=== PATIENT | male | born 1950 | race Caucasian/White ===

== ENCOUNTER 2018-02-24 11:25 | Outpatient (CLI) | payer OTHER, SELFPAY ==
--- NOTE | 2018-02-24 12:41 | DI.RAD_ITS ---
SYMPTOMS/DIAGNOSIS: LUMBAR SPONDYLOSIS PAIN CLINIC LUMBAR SPINE: Fluoroscopy Time: 26.1 sec Fluoroscopy was utilized by Dr. Alfaro during the performance of a bilateral lumbar medial branch block. Please refer to the procedure report for complete details.
[2018-02-24 13:12] VITALS: BP 131/83; PULSE 60; RESP 14; O2SAT 97
--- NOTE | 2018-02-24 13:21 | PDOC.PAIN_ITS ---
Pain Clinic Procedure Note Current Active Problems Problem Status Onset Lumbosacral spondylosis without myelopathy Chronic Lumbar/Sacral Medial Branch Blocks ERIN NAVAS has been referred to the [facility] for lumbar/ sacral medial branch blocks. COMMENTS: Patient patient is a past radiofrequency ablation L3-4 08/2015. This lasted for over a year. His pain increased but is in the same distribution. He does have right-sided radicular symptoms to his Ankle. He has had previous epidural steroid injections in the past which only gave him minimal relief. Patient was interviewed and the medical record reviewed. There were no medical , pharmacologic, radiographic or other structural contraindications to attempting fluoroscopically guided local anesthetic lumbar/sacral medial branch blocks. Risks and expected side effects as well as potential benefit of the procedure were reviewed and voiced concerns addressed. The printed consent form was signed and witnessed. Standard time-out procedure was performed. Patient was placed in the prone position on the fluoroscopy table and automated blood pressure cuff and pulse oximeter applied. The skin entry points for approaching the anatomic target points of the segmental medial branches of { bilateral L3, 4, 5} were identified with anfluoroscopy and marked. Following thorough Chlorhexadine preparation of the skin and draping and 1% lidocaine infiltration of the skin entry points and subcutaneous tissues, a 22 gauge spinal needle was placed under fluoroscopic guidance down on to the target point for each respective segmental medial branch.Position was confirmed in A/P, oblique and lateral views with 0.25ml of omnipaque 240. At each point .5ml 0.5% Bupivacaine was injected. Vital signs were stable throughout the procedure and were as recorded in the docflowsheet by the nursing staff. Follow up plans and appointments were discussed and was instructed to keep careful note of how the usual pain was modified by these injections. Specifically was asked to keep a pain diary for the next 24 hours using a numeric pain scale of 0-10 and report these results at the follow-up visit. Post procedure instruction was given as documented in the nursing documentation and having met discharge criteria. Patient was discharged from the [facility]. Based on the medial branches blocked today, if the patient has adequate relief and we are able to proceed to radiofrequency ablation, the treatment should result in the denervation of the {bilateral L4-5, L5-S1 FACET JOINTS}. We would expect to denervate a total of {4} facets during the radiofrequency ablation. COMMENTS: Pain went from 10/21-. He will follow-up for radiofrequency ablation of the meets criteria. If he does not then would obtain an updated MRI. CC: Jyoti Orozco
[2018-02-24] MEDS: Omnipaque 240 MG/ML 50 ML BTL IJ (13:22)
[2018-02-24] MEDS: Bupivacaine 0.5% Pres-Free 10 ML VIAL IJ (13:24)
== END 2018-02-24 11:45 ==
PROVIDERS: PCP Family Medicine; Visit Provider Anesthesiology Pain Medicine
DX: R31.21 Asymptomatic microscopic hematuria (principal); N28.1 Cyst of kidney, acquired; Q63.0 Accessory kidney; K80.20 Calculus of gallbladder without cholecystitis without obstruction; M51.16 Intervertebral disc disorders with radiculopathy, lumbar region; M47.816 Spondylosis without myelopathy or radiculopathy, lumbar region; G89.29 Other chronic pain
CPT/HCPCS: 64493; 64494; 64495; 72100; Q9967

== ENCOUNTER 2018-04-01 07:45 | Outpatient (CLI) | payer OTHER, SELFPAY ==
--- NOTE | 2018-04-01 06:00 | DI.RAD_ITS ---
SYMPTOMS/DIAGNOSIS: LUMBAR SPONDYLOSIS, LUMBAR RADIOFREQUENCY ABLATION PAIN CLINIC: Fluoroscopy Time: 84.6 secs Images submitted from the pain clinic demonstrate needle placement over the left lateral superior portion of the L 4 vertebral body and left L 4 - 5 disc interspace in conjunction with a radiofrequency ablation carried out by Dr. Bonner. Please see the procedure report for further information.
[2018-04-01 08:00] VITALS: BP 113/81; PULSE 65; RESP 18; TEMP 37.3; O2SAT 96
[2018-04-01] MEDS: Midazolam 2 MG/2 ML VIAL IVP (08:22)
[2018-04-01] MEDS: fentaNYL 100 MCG/2 ML VIAL IVP (08:22)
[2018-04-01] MEDS: Lactated Ringers 1,000 ML 80 ML IV (08:26)
[2018-04-01 08:59] VITALS: BP 126/86; PULSE 68; RESP 21; O2SAT 96
--- NOTE | 2018-04-01 09:08 | PDOC.PAIN_ITS ---
Pain Clinic Procedure Note Current Active Problems Problem Status Onset Lumbosacral spondylosis without myelopathy Chronic LUMBAR/SACRAL MEDIAL BRANCH RADIOFREQUENCY with the COOLIEF Machine ERIN NAVAS has been referred to the [facility] for radiofrequency treatment of chronic axial back pain. ERIN has had long standing back pain thought to be facet joint generated and which has been refractory to other therapies. Local anesthetic medial branch blocks or intra- articular facet joint injections resulted in ERIN reporting reduction of the usual axial component of pain for at least the duration of the local anesthetic effect. COMMENTS: He nearly 2 years of relief with his last bilateral L3-L5DR RFA >2 years ago. DX: Lumbosacral spondylosis without myelopathy Patient was interviewed and the medical record reviewed. There were no medical, pharmacologic, radiographic or other structural contraindications to attempting fluoroscopically guided radiofrequency treatment. Risks and expected side effects as well as potential benefit of the procedure were reviewed and voiced concerns addressed. The printed consent form was signed and witnessed. Standard time-out procedure was performed. Patient was placed in the prone position on the fluoroscopy table and automated blood pressure cuff and pulse oximeter applied. The skin entry points for approaching the anatomic target points of the segmental medial branches of bilateral L3-L5DR were identified with fluoroscopy and marked. Following thorough Chlorhexadine preparation of the skin and draping and 1% lidocaine infiltration of the skin entry points and subcutaneous tissues, a single 18 guage curved 10 cm 10mm active tip radiofrequency cannula was placed under fluoroscopic guidance along or across the anatomic course of each respective segmental medial branch. Each placement was stimulated at 50Hz and les then 0.5V for medial branch sensory localization without any evidence of distal myotomal stimulation. 1cc of 2% ;idocaine was injected at each site. At each placement a continuous mode radiofrequency treatment was done at 80 degrees C for 90secs and then rotated 180degrees and then repeated. 1/3 cc of Depomedrol 40 mg/cc was injected at each segment. This radiofrequency treatment should result in the denervation of the bilateral L4-L5 and L5-S1 FACET JOINTS.~ A total of 4 facets were expected to be denervated from today's treatment. Vital signs were stable throughout the procedure and were as recorded in the docflowsheet by the nursing staff. If given, dosages of intravenous drugs for anxiolysis and analgesia were documented in the Medication Administration Record (MAR). Follow up plans and appointments were discussed. Post procedure instruction was given as documented in the nursing documentation and having met discharge criteria, ERIN was discharged from the [facility]. COMMENTS: If this gives him >6 months of relief from his low back pain, it can be repeated. CC: Jyoti Orozco
[2018-04-01] MEDS: methylPREDNISolone ACETATE 40 MG/ML VIAL IJ (09:26)
[2018-04-01] MEDS: Bupivacaine 0.5% Pres-Free 30 ML VIAL IJ (09:26)
[2018-04-01] MEDS: Lidocaine 2% Pres-Free 5 ML VIAL IJ (09:27)
== END 2018-04-01 08:05 ==
PROVIDERS: PCP Family Medicine; Visit Provider Preventive Medicine Occupational Medicine
DX: M47.817 Spondylosis without myelopathy or radiculopathy, lumbosacral region (principal); G89.29 Other chronic pain
CPT/HCPCS: 64635; 64636; 72100; J1030; J2250; J3010

== ENCOUNTER 2020-03-07 08:19 | Outpatient (CLI) | payer MEDICARE, OTHER, MEDICAID, SELFPAY ==
--- NOTE | 2020-03-07 06:00 | DI.RAD_ITS ---
EXAM: XR PAIN CLINIC LUMBAR SP 2V CLINICAL HISTORY: Dx:Lumbar Spondylosis. TECHNIQUE: Fluoroscopy was provided for the referring physician for guidance with performing injecti on procedure. COMPARISON: No exams were available for comparison FINDINGS: Please see procedure note for details. Fluoro time: 73.9 sec, 27.53 mGy RADIATION DOSE DELIVERED:
[2020-03-07 08:28] VITALS: BP 132/82; PULSE 60; RESP 16; TEMP 36.8; O2SAT 97
[2020-03-07] MEDS: Lactated Ringers 1,000 ML 80 ML IV (09:00)
[2020-03-07] MEDS: fentaNYL 100 MCG/2 ML VIAL IVP (09:06)
[2020-03-07] MEDS: Midazolam 2 MG/2 ML VIAL IVP (09:06)
[2020-03-07] MEDS: Lidocaine 1% Pres-Free 30 ML VIAL IJ (09:24)
[2020-03-07] MEDS: methylPREDNISolone ACETATE 40 MG/ML VIAL IJ (09:34)
[2020-03-07] MEDS: Lidocaine 2% Pres-Free 5 ML VIAL IJ (09:35)
[2020-03-07] MEDS: Bupivacaine 0.5% Pres-Free 10 ML VIAL IJ (09:36)
[2020-03-07 09:39] VITALS: BP 135/93; PULSE 66; RESP 14; O2SAT 96
--- NOTE | 2020-03-07 09:47 | PDOC.PAIN_ITS ---
Pain Clinic Procedure Note Procedure Note Procedure Note: Bilateral Lumbar Radiofrequency with Coolief Machine PROCEDURE NOTE Date of Service: March 07, 2020 Patient: DANIELA NAVASAND Uriel Provider: Escobar Frederick MD Pre Operative Diagnosis: lumbar spondylosis Post Operative Diagnosis: same as above Comment: patient presents for repeat lumbar RFA, typically gets 9 months of excellent pain relief of back pain. PROCEDURE: Radiofrequency Ablation of medial branches - bilateral L3, L4, L5-DR ERIN NAVAS was brought into the fluoroscopy suite and positioned into the prone position on the fluoroscopy table and allowed to adjust to a position of comfort. A grounding pad was placed on the left thigh. The lumbar region was widely prepped with a chloraprep solution, allowed to air dry and draped in standard sterile surgical fashion. Local anesthesia was provided by 20 mL of 1 % lidocaine delivered with a 25g needle. A 17g 100mm radiofrequency introducer needle was placed to the planned anatomic targets guided with intermittent fluoroscopy with a perpendicular approach to terminally place at the junction of the superior articular process and the transverse process of the bilateral L3 L4 and the base of the sacral ala on the bilateral for the L5 medial branch nerve. The stylets were removed and radiofrequency probes with a 4mm active tip were then inserted. Needle tip position of the probes was verified in the AP, oblique, and lateral views. At each site, the medial branch nerve was stimulated at 2 Hz to a maximum 1-2 volts determined to finalize safe needle and electrode placement. The patient was awake and responsive during this portion of the procedure. Each target was an esthetized with 1mL of 2% lidocaine for anesthesia for lesioning and then each target was lesioned at 80 degrees Celsius for 2 minutes and 30 seconds. Tissue impedences were noted to be between 250 and 500 Ohms. Electrodes and needles were then removed and bandages placed over the needle placement sites, the patient then returned to the supine position on a stretcher and transported to the recovery room without hemodynamic, neurologic, or allergic reactions. Fluoroscopic images were printed for hard copy recording and digitally archived. POST PROCEDURE EVALUATION: IMPRESSION: 1. Patient required 1mg of IV versed and 25mcg of IV Fentanly Follow up plans and appointments were discussed with the ERIN . Post procedure instruction was given as documented in nursing documentation and having met discharge criteria, ERIN was discharged from the [facility]. COMMENTS: No complications. F/U with our office as needed. I personally performed this entire procedure. Escobar Frederick MD Attending Physician
== END 2020-03-07 08:39 ==
PROVIDERS: PCP Family Medicine; Visit Provider Internal Medicine
DX: M47.816 Spondylosis without myelopathy or radiculopathy, lumbar region (principal)
CPT/HCPCS: 64635; 64636; 72100; J1030; J2250; J3010

== ENCOUNTER 2020-03-27 21:32 | Outpatient (REF) | payer MEDICARE, OTHER, SELFPAY ==
[2020-03-27 18:56] LABS: ALT 29 U/L (16-63); AST 19 U/L (15-37); Albumin 4.1 g/dL (3.4-5.0); Alkaline Phosphatase 57 U/L (46-116); Anion Gap 5.1 mmol/L (3-11); BUN 19 mg/dL (7-18); Bilirubin, Total 0.4 mg/dL (0.2-1.0); CO2 29.9 mmol/L (21.0-32.0); CREATININE 1.02 mg/dL (0.70-1.30); Calcium 9.2 mg/dL (8.5-10.1); Chloride 101 mmol/L (98-107); Glucose 75 mg/dL (74-106); Potassium 4.5 mmol/L (3.5-5.1); Sodium 136 mmol/L (136-145); Total Protein 7.1 g/dL (6.4-8.2)
== END 2020-03-27 21:52 ==
LOC: NCHCN 21:32
PROVIDERS: PCP Family Medicine; Visit Provider Family Medicine
DX: I10 Essential (primary) hypertension (principal)
CPT/HCPCS: 80053

== ENCOUNTER 2020-05-17 15:25 | Outpatient (REF) | payer MEDICARE, OTHER, SELFPAY ==
[2020-05-21 17:29] LABS: 2-Hydroxy Ethyl Flurazepam Not Detected ng/mL (Cutoff: 10); 6-monoacetylmorphine Not Detected ng/mL (Cutoff: 25); Alpha-Hydroxy Midazolam Not Detected ng/mL (Cutoff: 10); Alpha-Hydroxy Triazolam Not Detected ng/mL (Cutoff: 10); Alpha-Hydroxyalprazolam Not Detected ng/mL (Cutoff: 10); Alpha-OH-alprazolam Glucuronid Not Detected ng/mL (Cutoff: 50); Alprazolam Not Detected ng/mL (Cutoff: 10); Amphetamines Negative ng/mL (Cutoff: 500); Barbiturates Negative ng/mL (Cutoff: 200); Buprenorphine Not Detected ng/mL (Cutoff: 5); Chlordiazepoxide Not Detected ng/mL (Cutoff: 10); Clobazam Not Detected ng/mL (Cutoff: 10); Clonazepam Not Detected ng/mL (Cutoff: 10); Cocaine Negative ng/mL (Cutoff: 150); Codeine Not Detected ng/mL (Cutoff: 25); Comment Normal; Creatinine, U 75.8 mg/dL; Diazepam Not Detected ng/mL (Cutoff: 10); Dihydrocodeine Not Detected ng/mL (Cutoff: 25); EDDP Not Detected ng/mL (Cutoff: 25); Fentanyl Not Detected ng/mL (Cutoff: 2); Flurazepam Not Detected ng/mL (Cutoff: 10); Hydrocodone Not Detected ng/mL (Cutoff: 25); Hydromorphone Not Detected ng/mL (Cutoff: 25); Hydromorphone-3-beta-glucuroni Not Detected ng/mL (Cutoff: 100); Lorazepam Not Detected ng/mL (Cutoff: 10); Lorazepam Glucuronide Not Detected ng/mL (Cutoff: 50); Meperidine Not Detected ng/mL (Cutoff: 25); Methadone Not Detected ng/mL (Cutoff: 25); Midazolam Not Detected ng/mL (Cutoff: 10); Morphine Not Detected ng/mL (Cutoff: 25); N-Desmethylclobazam Not Detected ng/mL (Cutoff: 200); N-desmethyltapentadol Not Detected ng/mL (Cutoff: 50); Naloxone Not Detected ng/mL (Cutoff: 25); Norbuprenorphine Not Detected ng/mL (Cutoff: 5); Norfentanyl Not Detected ng/mL (Cutoff: 2); Norhydrocodone Not Detected ng/mL (Cutoff: 25); Normeperidine Not Detected ng/mL (Cutoff: 25); Noroxycodone Not Detected ng/mL (Cutoff: 25); Noroxymorphone Not Detected ng/mL (Cutoff: 25); O-desmethyltramadol Not Detected ng/mL (Cutoff: 25); Oxazepam Glucuronide Not Detected ng/mL (Cutoff: 50); Phencyclidine Negative ng/mL (Cutoff: 25); Prazepam Not Detected ng/mL (Cutoff: 10); Propoxyphene Not Detected ng/mL (Cutoff: 25); Specific Gravity 1.009; Tapentadol Not Detected ng/mL (Cutoff: 25); Temazepam Not Detected ng/mL (Cutoff: 10); Temazepam Glucuronide Not Detected ng/mL (Cutoff: 50); Tetrahydrocannabinol Presumptive Positive ng/mL (Cutoff: 50); Tramadol Not Detected ng/mL (Cutoff: 25); Triazolam Not Detected ng/mL (Cutoff: 10); Zolpidem Phenyl-4-Carboxy acid Not Detected ng/mL (Cutoff: 10); pH 7.3
[2020-05-23 21:13] LABS: Carboxy-THC Interpretation Positive.; Delta-9 CarboxyThc by LC-MS/MS 419 ng/mL (Cutoff:<3)
== END 2020-05-17 15:26 | disposition home or self-care (01) ==
LOC: LBN 15:25
PROVIDERS: PCP Family Medicine; Visit Provider Nurse Practitioner Family
DX: Z79.899 Other long term (current) drug therapy (principal)
CPT/HCPCS: 80307; 80347; 80349; 80364

== ENCOUNTER 2021-08-27 14:42 | Outpatient (REF) | payer MEDICARE, OTHER, SELFPAY ==
[2021-08-27 15:43] LABS: Abs Immature Grans 0.01 10^3/uL (0.0-0.06); Absolute Basophil Count 0.06 10^3/uL (0.0-0.2); Absolute Eosinophil Count 0.32 10^3/uL (0.0-0.7); Absolute Lymphocyte Count 1.37 10^3/uL (1.2-3.4); Absolute Monocyte Count 1.06 10^3/uL (0.1-0.8); Absolute Neutrophil Count 3.34 10^3/uL (1.2-6.7); Eosinophils % 5.2; HCT 43.7 % (40.0-50.0); HGB 14.5 g/dL (13.5-17.5); Immature Grans % 0.2; Lymphocytes % 22.2; MCH 31.7 pg (27.0-33.0); MCHC 33.2 % (32.0-36.0); MCV 96 fL (80-95); MPV 9.7 fL (8.0-11.0); Monocytes % 17.2; Neutrophils % 54.2; Platelet Count 289 10^3/uL (130-400); RBC 4.57 10^6/uL (4.36-5.78); RDW 12.6 % (11.8-14.1); RDW-SD 44.8 fL; WBC 6.16 10^3/uL (4.4-10.8)
[2021-08-27 15:53] LABS: PTT Activated 23.4 sec (21.0-27.5); Prothrombin Time 9.7 sec (9.3-11.0)
== END 2021-08-27 14:43 | disposition home or self-care (01) ==
LOC: LBN 14:42
PROVIDERS: PCP Family Medicine; Visit Provider Family Medicine
DX: R23.3 Spontaneous ecchymoses
CPT/HCPCS: 85025; 85610; 85730

== ENCOUNTER 2021-09-24 08:44 | Outpatient (CLI) | payer MEDICARE, OTHER, SELFPAY ==
--- NOTE | 2021-09-24 08:30 | DI.RAD_ITS ---
Exam(s) XR SHOULDER RT COMPLETE 2+V EXAM: XR SHOULDER RT COMPLETE 2+V CLINICAL HISTORY: pain in right shoulder. TECHNIQUE: 2D digital imaging was performed. Two views. COMPARISON: CR RIGHT SHOULDER COMPLETE from 01/17/2016 MR MRI R UPPER JOINT WO CONT from 02/12/2016 FINDINGS: BONES: No acute fracture is present. No bony destructive lesion is seen. There is spurring at the ti p of the acromion as well as at the greater tuberosity. There is mild spurring at the glenoid. The JOINTS: No dislocation present. Glenohumeral joint space is well maintained. No significant AC join t spurring. SOFT TISSUE: Normal. IMPRESSION: Mild degenerative changes. DATA REPOSITORY: RADIATION DOSE DELIVERED:
== END 2021-09-24 08:45 | disposition home or self-care (01) ==
LOC: DIORS 08:45
PROVIDERS: PCP Family Medicine; Visit Provider Family Medicine
DX: M65.331 Trigger finger, right middle finger (principal); M75.21 Bicipital tendinitis, right shoulder; M75.41 Impingement syndrome of right shoulder; M75.51 Bursitis of right shoulder; M75.101 Unspecified rotator cuff tear or rupture of right shoulder, not specified as traumatic
CPT/HCPCS: 20550; 99203; 73030; J1030

== ENCOUNTER → 2021-10-17 01:33 | Outpatient (CLI) | payer MEDICARE, OTHER, SELFPAY ==
--- NOTE | 2021-10-17 08:15 | DI.MRI_ITS ---
Exam(s) MR UPPER JOINT RT WO EXAM: MR UPPER JOINT RT WO CLINICAL HISTORY: PAIN,bursitis rt shoulder, impingement syndrome,tendinitis,m75.51,m75.41,. TECHNIQUE: Multiplanar multisequence MRI was performed. COMPARISON: Plain films 24 September 2021 and MRI 12 February 2016. FINDINGS: The exam is limited by patient motion Bones: There is no fracture or contusion pattern. The acromioclavicular joint is normal. There is spurring at the tip of the acromion. Degenerative changes are noted in the glenoid and humeral head.. Glenohumeral joint: A moderate sized glenohumeral joint effusion is present. Fluid is also seen in th e subcoracoid and subacromial subdeltoid bursae. Rotator Cuff: The supraspinatus tendon is torn and retracted to the level of the acromion. There is moderate muscl e atrophy.. The subscapularis tendon is torn and retracted to the level of the glenoid. There is mo derate to severe muscle atrophy. The infraspinatus and teres minor tendons appear intact. Labrum and biceps anchor: The biceps tendon is not seen.. . The labrum shows degenerative changes greatest anteriorly and supe riorly.. IMPRESSION: Full-thickness tear with retraction of the supraspinatus and subscapularis tendons as well as biceps tendon. Degenerative changes of the glenohumeral joint. Joint effusion. DATA REPOSITORY:
== END ==
PROVIDERS: PCP Family Medicine; Visit Provider Student in an Organized Health Care Education/Training Program
DX: M75.101 Unspecified rotator cuff tear or rupture of right shoulder, not specified as traumatic (principal); M75.21 Bicipital tendinitis, right shoulder; M75.41 Impingement syndrome of right shoulder; M75.51 Bursitis of right shoulder
CPT/HCPCS: 73221

== ENCOUNTER → 2021-10-23 10:45 | Outpatient (BNVA) | payer MEDICARE, OTHER, SELFPAY | PROVIDERS: PCP Family Medicine; Referring Provider Family Medicine; Visit Provider Student in an Organized Health Care Education/Training Program | DX: M12.811 Other specific arthropathies, not elsewhere classified, right shoulder (principal); M75.101 Unspecified rotator cuff tear or rupture of right shoulder, not specified as traumatic | CPT/HCPCS: 20610; 99214; J1030 ==

== ENCOUNTER 2022-02-18 18:08 | Outpatient (REF) | payer MEDICARE, OTHER, SELFPAY ==
[2022-02-18 18:34] LABS: Anion Gap 8.1 mmol/L (3-11); BUN 17 mg/dL (7-18); CO2 29.9 mmol/L (21.0-32.0); CREATININE 0.8 mg/dL (0.70-1.30); Calcium 9.6 mg/dL (8.5-10.1); Calculated LDL 218 mg/dL (<100); Chloride 102 mmol/L (98-107); Cholesterol 279 mg/dL (<200); Glucose 99 mg/dL (74-106); HDL Cholesterol 49 mg/dL (40-60); Potassium 4.3 mmol/L (3.5-5.1); Sodium 140 mmol/L (136-145); Triglyceride 64 mg/dL (<150)
[2022-02-20 09:14] LABS: Hepatitis B Surface Ag Negative (Negative)
[2022-02-20 10:48] LABS: HIV-1/2 Ag & Ab Screen Negative (Negative)
[2022-02-20 11:07] LABS: Hepatitis C Ab w Rflx HCV PCR Negative (Negative)
== END 2022-02-18 18:09 | disposition home or self-care (01) ==
LOC: NCHCN 18:08
PROVIDERS: PCP Family Medicine; Visit Provider Family Medicine
DX: Z00.00 Encounter for general adult medical examination without abnormal findings (principal); E78.5 Hyperlipidemia, unspecified; I10 Essential (primary) hypertension
CPT/HCPCS: 80048; 80061; 86803; 87340; 87389

== ENCOUNTER → 2022-02-25 01:44 | Outpatient (CLI) | payer MEDICARE, OTHER, SELFPAY ==
--- NOTE | 2022-02-25 07:00 | DI.US_ITS ---
Exam(s) US AAA SCREENING EXAM: US AAA SCREENING CLINICAL HISTORY: ADULT PREVENTATIVE CARE, Z00.00; REMOTE SMOKING HISTORY COMPARISON: No exams were available for comparison FINDINGS: Abdominal Aorta: Proximal: 2.9 cm Mid: 2.5 cm Distal: 2.2 cm Iliacs: Right: 1.3 cm Left: 1.5 cm IMPRESSION: No evidence of abdominal aortic aneurysm. DATA REPOSITORY:
== END ==
PROVIDERS: PCP Family Medicine; Visit Provider Family Medicine
DX: Z00.00 Encounter for general adult medical examination without abnormal findings (principal)
CPT/HCPCS: 76706

== ENCOUNTER → 2022-03-12 10:39 | Outpatient (BNVA) | payer MEDICARE, OTHER, SELFPAY | PROVIDERS: PCP Family Medicine; Referring Provider Family Medicine; Visit Provider Student in an Organized Health Care Education/Training Program | DX: M65.331 Trigger finger, right middle finger (principal) | CPT/HCPCS: 20550; 99213; J1030 ==

== ENCOUNTER → 2022-03-26 11:20 | Outpatient (BNVA) | payer MEDICARE, OTHER, SELFPAY | PROVIDERS: PCP Family Medicine; Referring Provider Family Medicine; Visit Provider Student in an Organized Health Care Education/Training Program | DX: M12.811 Other specific arthropathies, not elsewhere classified, right shoulder (principal); S46.211A Strain of muscle, fascia and tendon of other parts of biceps, right arm, initial encounter; X58.XXXA Exposure to other specified factors, initial encounter | CPT/HCPCS: 20610; 99213; J1030 ==

== ENCOUNTER → 2022-06-25 10:28 | Outpatient (BNVA) | payer MEDICARE, OTHER, SELFPAY | PROVIDERS: PCP Family Medicine; Referring Provider Family Medicine; Visit Provider Student in an Organized Health Care Education/Training Program | DX: M65.331 Trigger finger, right middle finger (principal) | CPT/HCPCS: 99214 ==

== ENCOUNTER 2022-07-10 01:24 | Outpatient (CLI) | payer MEDICARE, OTHER, SELFPAY ==
--- NOTE | 2022-07-10 07:30 | DI.CT_ITS ---
Exam(s) CT UPPER EXTREMITY RT WO EXAM: CT UPPER EXTREMITY RT WO CLINICAL HISTORY: PAIN,rupture rt proximal biceps tendon, [id number]. TECHNIQUE: Imaging Protocol: Axial computed tomography images with coronal and sagittal reformatted images were created and reviewed. COMPARISON: CR XR SHOULDER RT COMPLETE 2+V from 09/24/2021 MR MR UPPER JOINT RT WO from 10/17/2021 FINDINGS: Bones: No acute fractures identified. There is narrowing of the acromial humeral interval. Superio r subluxation of the humeral head is seen. This can be seen with chronic rotator cuff tear. There a re mild degenerative changes seen at the acromioclavicular joint with mild bony hypertrophy. There a re degenerative changes seen at the glenohumeral joint. Small subchondral cysts are seen in the grea ter tuberosity. No lytic or sclerotic lesions are identified. Soft Tissues: Atherosclerosis of the thoracic aorta is noted. Coronary artery calcifications are pre sent. IMPRESSION: 1. Degenerative changes in the shoulder as described above. 2. Superior subluxation of the humeral head which can be seen with chronic rotator cuff tear. 3. If there is concern for rotator cuff injury for biceps tendon tear, an MRI should be considered fo r further evaluation. RADIATION DOSE DELIVERED: 742.35mGy.cm Total DLP 742.35mGy.cm Total DLP DATA REPOSITORY: All CT scans at this facility are submitted to the National Radiology Data Registry (NRDR) Dose Index Registry (DIR) with the [employer] ([employer]). RADIATION OPTIMIZATION: All CT scans at this facility use at least one of these dose optimization te chniques: automated exposure control; mA and/or kV adjustment per patient size (includes targeted exa ms where dose is matched to clinical indication); or iterative reconstruction.
== END 2022-07-10 01:44 ==
LOC: DI 01:24
PROVIDERS: PCP Family Medicine; Visit Provider Student in an Organized Health Care Education/Training Program
DX: M25.511 Pain in right shoulder (principal); S46.211A Strain of muscle, fascia and tendon of other parts of biceps, right arm, initial encounter; M79.621 Pain in right upper arm; M19.011 Primary osteoarthritis, right shoulder; S43.081A Other subluxation of right shoulder joint, initial encounter
CPT/HCPCS: 73200

== ENCOUNTER 2022-08-02 09:50 | Day surgery (SDC) | payer MEDICARE, OTHER, SELFPAY ==
[2022-08-02 10:12] VITALS: BP 150/81; PULSE 61; RESP 16; TEMP 36.3; O2SAT 97
[2022-08-02] MEDS: Lidocaine 1% Multi-Dose W/EPI 1/100,000 50 ML VIAL (10:50)
[2022-08-02] MEDS: Sodium Bicarbonate 50 MEQ/50 ML VIAL (10:50)
--- NOTE | 2022-08-02 11:15 | PDOC.DSDIS_ITS ---
Date of service: 08/02/22 Time of Service: 12:30 Discharge Plan Disposition Patient Disposition: Home Discharge Details Attending Provider: Graham Ravi Primary Care Provider: Adin Ortiz Home Meds and New Rx's Prescriptions: New ibuprofen 800 mg tablet 800 mg PO BID PRN (Reason: pain, moderate) Qty: 12 0RF oxycodone 5 mg tablet 5 - 10 mg PO Q4H MDD 30 mg PRN (Reason: moderate to severe pain) Qty: 9 0RF Continued cetirizine 10 mg tablet 10 mg PO DAILY PRN PRN tamsulosin 0.4 mg capsule 0.4 mg PO DAILY cyclobenzaprine 5 mg tablet 5 mg PO TID PRN magnesium PO glucos sul [id number]-giv-phtid-C-Mn [Glucosamine Chondroitin] PO ibuprofen 200 mg tablet 200 mg PO Q6H PRN acetaminophen [Mapap (acetaminophen)] 325 mg tablet 650 mg PO Q4H PRN polyvinyl alcohol [Artificial Tears (polyvin alc)] 1.4 % drops 1 drp OP BID PRN Saline Nasal 0.65 % aerosol,spray 1 spray ANTOINETTE BID PRN Patient Comments: [place] each nostril Cosamin [place] (with [place]ia) 500-500-33.3-70 mg tablet PO Ultra CoQ10 75 mg capsule 75 mg PO DAILY zolpidem [Ambien CR] 6.25 mg tablet,ext release multiphase 6.25 mg PO QHS melatonin 3 mg tablet 6 mg PO HS rosuvastatin 10 mg tablet 10 mg PO DAILY verapamil 120 MG tablet extended release 120 mg PO DAILY AM Discharge Instructions Additional Instructions: Surgery: Right middle finger trigger release Activity: Recommend gentle use of the right hand for the next few weeks. Prescriptions: Ibuprofen 800 mg take 1 every 12 hours with a meal as needed for moderate pain Oxycodone 5 mg take 1-2 every 4-6 hours as needed for severe pain You may use zsoy-xbi-nhujkom Tylenol (acetaminophen) as needed for mild pain. These pain medications may be taken all at once or in different combinations as needed. Also, recommend Colace (docusate) as a stool softener as surgery and pain medicine cause constipation. You may try yeua-szz-fqwnxwy diphenhydramine (Benadryl) 25-50 mg nightly as a sleep aid Dressings: Leave dressing in place for 1-2 days. May then remove and leave open to air or cover incision with Band-Aid. You may loosen/adjust Mil bandage as needed for comfort. Try to keep incision dry for at least 5 days. Follow-up: 10-[address] Ravi You may take off the leg compression stockings this evening at home. You may also leave them on a few days longer if you have a history of leg swelling or edema. Let us know right away if you develop any redness, drainage, fevers, chest pain, or trouble breathing. Do not drink alcohol or drive for at least 24 hours after anesthesia. Please call the office during business hours with any questions or concerns. Discharge Orders Discharge Orders: Discharge Order (Routine); Ordered 08/02/22 Ordered By: Graham Ravi DS: Diagnosis Discharge Diagnosis (1) Trigger finger, right middle finger: Status: Acute
[2022-08-02 11:19] VITALS: BP 155/86; PULSE 55; RESP 16; TEMP 36.6; O2SAT 97
--- NOTE | 2022-08-02 11:28 | ROE_ITS ---
Date of service: 08/02/22 Time of Service: 11:28 Operative Note Operative Note DATE OF PROCEDURE: 08/02/22 PRE-OP DIAGNOSIS: Right middle finger trigger finger POST-OP DIAGNOSIS: same PROCEDURE: Right middle finger trigger release, CPT #54946 SURGEON: Graham Ravi ANESTHESIA TYPE: Local By Surgeon Refer to Anesthesia Record ESTIMATED BLOOD LOSS: 2 COMPLICATIONS: None Patient was transported to: same day Patient's condition: stable Indications: Please see complete medical record for details. Procedure Description: In the operating room, local anesthesia was induced. The patient was positioned supine comfortably on the stretcher. Preoperative antibiotics were omitted for clean hand surgery. The right hand was prepped and draped in the usual sterile fashion. The correct patient, procedure, and side of the procedure were all verified prior to incision. A volar longitudinal approach was taken directly centered over the A1 enrike extending a couple centimeters as needed. The enrike was exposed, neurovascular structures protected, and released completely from distal to proximal. Spreading confirmed appropriate complete release. The flexor tendons were uninjured and had excellent excursion out of the wound. The patient demonstrated good active finger flexion extension without mechanical locking. T he small wound was copiously irrigated normal saline. Hemostasis was appropriate. Skin was closed using 3-0 nylon horizontal mattress suture. Incision covered with Xeroform, gauze, and hand wrapped gently compressive Mil bandage. The patient tolerated local anesthesia without complication and was transferred to back to the day surgery unit in stable condition.
== END 2022-08-02 09:51 | disposition home or self-care (01) ==
PROVIDERS: PCP Family Medicine; Visit Provider Student in an Organized Health Care Education/Training Program
PROC: (CPT 26055; principal; 2022-08-02 10:45)
DX: M65.331 Trigger finger, right middle finger (principal)
CPT/HCPCS: 26055

== ENCOUNTER → 2022-08-13 10:27 | Outpatient (BNVA) | payer MEDICARE, OTHER, SELFPAY | PROVIDERS: PCP Family Medicine; Referring Provider Family Medicine; Visit Provider Student in an Organized Health Care Education/Training Program | DX: M65.331 Trigger finger, right middle finger; M12.811 Other specific arthropathies, not elsewhere classified, right shoulder; S46.211D Strain of muscle, fascia and tendon of other parts of biceps, right arm, subsequent encounter; X58.XXXD Exposure to other specified factors, subsequent encounter | CPT/HCPCS: 99214 ==

== ENCOUNTER 2022-08-15 12:23 | Outpatient (CLI) | payer MEDICARE, OTHER, SELFPAY ==
--- NOTE | 2022-08-15 12:15 | RT.EKG_ITS ---
APPROVED REPORT Exam: Resting ECG Reason for Exam: PREOP FOR 08/29/22 TOTAL SHOULDER REPLACEMENT Patient Location: O HR:58 bpm ECG Measurements Heart Rate 58 AXIS DC 177 P 9 QRSd 90 QRS -32 QT 415 T 44 QTc 408 Conclusion Sinus rhythm...normal P axis, V-rate 50- 99 Left axis deviation...QRS axis (-30,-90)
== END 2022-08-15 12:24 | disposition home or self-care (01) ==
PROVIDERS: PCP Family Medicine; Visit Provider Student in an Organized Health Care Education/Training Program
DX: M75.21 Bicipital tendinitis, right shoulder (principal); M75.51 Bursitis of right shoulder; Z01.810 Encounter for preprocedural cardiovascular examination
CPT/HCPCS: 93005; 93010

== ENCOUNTER 2022-08-29 05:53 | Day surgery (SDC) | payer MEDICARE, OTHER, SELFPAY ==
[2022-08-29] VITALS (12 sets, daily range): BP systolic 85–162; BP diastolic 48–82; PULSE 52–73; RESP 12–22; TEMP 36.4–37; O2SAT 93–98; BMI 27.8
[2022-08-29] MEDS: Lactated Ringers 1,000 ML 30 ML IV (06:32)
--- NOTE | 2022-08-29 07:00 | DI.RAD_ITS ---
Exam(s) XR SHOULDER RT COMPLETE 2+V EXAM: XR SHOULDER RT COMPLETE 2+V CLINICAL HISTORY: Rotator cuff arthropathy. TECHNIQUE: 2D digital imaging was performed. Two images were obtained. Grashey and Y views were obt ained. COMPARISON: CR XR SHOULDER RT COMPLETE 2+V from 09/24/[address] UPPER EXTREMITY RT WO from 07/10/2022 FINDINGS: The patient is now status post right total reverse shoulder replacement. The orthopedic hardware yehuda ears in good position. The bones are intact and normally mineralized. Postsurgical changes are seen in the soft tissues. IMPRESSION: Status post right total reverse shoulder replacement. DATA REPOSITORY: RADIATION DOSE DELIVERED:
--- NOTE | 2022-08-29 07:05 | ROE_ITS ---
Date of service: 08/29/22 Time of Service: 07:30 Operative Note Operative Note DATE OF PROCEDURE: 08/29/22 PRE-OP DIAGNOSIS: Right 1. Rotator cuff arthropathy 2. Proximal biceps rupture POST-OP DIAGNOSIS: same PROCEDURE: Right: 1. Reverse total shoulder arthroplasty, CPT # 10816 The dermatology physician assistant was medically required as this procedure involves retraction, protection of neurovascular structures, and manipulation of multiple instruments and implants at the same time, which cannot be done without a skilled dermatology physician assistant. SURGEON: Graham Ravi SURGICAL SPECIALIST: Hernandez Andrade ANESTHESIA TYPE: Local By Surgeon, General LMA/ETT and Primary Nerve Block Refer to Anesthesia Record ESTIMATED BLOOD LOSS: 75 Patient was transported to: PACU Implants: [employer] modular glenoid system baseplate 24 mm, 10 degree full wedge augment [employer] modular glenoid system central post 25 mm [employer] modular glenoid system peripheral locking screws 32 mm inferior, 24 mm superior, 16 mm posterior, 16 mm anterior [employer] modular glenoid system glenosphere 36 +4 mm lateralized [employer] humeral stem 135 degrees size 8 [employer] suture cup size 36 posterior offset [employer] humeral insert size 36+6 mm Indications: Please see complete medical record for details. Findings: Proximal biceps rupture, deficient anterior superior and posterior superior rotator cuff. Bald/denuded humeral head and high?grade glenohumeral cartilage loss. Superior wear/ migration Procedure Description: In the operating room, general anesthesia was induced. The patient was positioned beachchair on the operating room table. All bony prominences were well-padded. Preoperative antibiotics were administered. The shoulder was prepped and draped in the usual sterile fashion for shoulder arthroplasty. The correct patient, procedure, and side of the procedure were all verified prior to incision. The deltopectoral approach was preinjected with local anesthetic containing epinephrine and taken to the anterior shoulder. Care was taken to bluntly dissect the interval between the deltoid and pectoralis major muscles and to identify the cephalic vein within its fat stripe. The the vein was mobilized laterally. Subdeltoid space and conjoined tendon were freed of adhesions. The l bicipital groove was identified just lateral to the lesser tuberosity. The uppermost margin of the pectoralis major tendon was released from the proximal humerus. There was no biceps tendon present to tenodesis. The subscapularis did not have any remnant on the tuberosity. Instead anterior capsular scarring was carefully released. Care was taken to avoid the axillary nerve by only working on the bone inferiorly and medially. Appropriate coagulation was achieved especially interiorly. The anatomic neck was cut using an oscillating saw with the humeral head bone brought back table in case there was a need for future bone grafting. The proximal humeral protection plate was used to provi sionally confirm suture cup and glenosphere size. Attention was then turned to the glenoid and retractors were placed and a circumferential release performed using the long head of the biceps remnant to remove soft tissue about the glenoid rim. Care was taken inferiorly to work on bone only between 5 and 7:00 o'clock and bluntly elevate tissues inferiorly. The VIP guide was placed on the glenoid and used to confirm placement and trajectory of the central guidepin. The guidepin was inserted and advanced just through the far cortex ensuring adequate central fixation length. Depth gauge was used to confirm length. The glenosphere sizer was used to confirm positioning and glenosphere size. The augmented baseplate reamer was used placed in the augment superiorly and slightly posteriorly to account for the wear pattern. There was appropriate glenoid preparation. The central post screw was then used, guidewire removed, and the baseplate assembled on the back table before being impacted and fully compressed onto the glenoid surface. The locking guide was then used to drill and place appropriately lengthed inferior, superior, anterior, and posterior screws. The [id number] reamer was used to confirm adequate peripheral reaming. The glenosphere was applied with the sap bw consultant and then impacted to engage the Raymond taper. It did not initially lock in place so it was removed, redundant inferior tissue was resected and swept away, and the glenosphere reapplied. It engaged the Raymond taper appropriately. It was then locked with appropriate countersinking of the setscrew. The glenosphere was inspected and found to have good fit, appropriate positioning, and no soft tissue or bony impingement. Attention was then turned back to the proximal humerus, which was delivered from the wound and maintained in external rotation. Reamers were started appropriately posterior to the bicipital groove taking care to maintain in line approach with the humeral canal. Sequential reaming was done from size 5 up to size 7. Next, the broaches were sequentially used to open the proximal humerus starting with a size 5 and going up to size 8 and sunk to the appropriate depth while maintaining approximately 25 degrees retroversion. There was good metaphyseal fit and rotational control of the proximal humerus with this size. The posterior offset guide was used to ream for the suture cup. The humeral trial cup was connected. Trialing was commenced with +3 mm liner. The shoulder was reduced and taken through range of motion. Trial components were built up to +6 mm liner to achieve good stability and appropriate tension on the deltoid and conjoined tension. The trial components were removed from the proximal humerus. The wound was copiously irrigated with normal saline. The the proximal humeral stem and suture cup were assembled and brought over the proximal humerus. A small amount of vancomycin powder was distributed in the proximal humerus. The humeral component and suture cup were impacted into place. The trial +6mm liner was added, and the shoulder was reduced and range of motion, stability, and tension confirmed to be nearly appropriate with mild instability. The trial components were built up to +6 mm spacer and +3 mm liner, but this +9 mm construct was too tight. A +6 mm liner was then applied and felt to be slightly too loose so a +6 mm constrained liner was then connected, and demonstrated good range of motion, stability, and tension. The shoulder was copiously irrigated with Betadine and normal saline. Vancomycin powder was distributed deeply about the shoulder and through subcutaneous tissues. The cephalic vein had a small puncture or tear on its substance, which was carefully coagulated without ligating the entire vein. The deltopectoral interval was approximated burying the cephalic vein with 0 Vicryl. Subcutaneous tissue was irrigated then closed using 2-0 Monocryl in a buried interrupted fashion. Skin was closed using 3-0 Monocryl in a buried subcuticular fashion. Skin glue was applied to the incision. A silver impregnated bandage was placed over the incision. The extremity was placed into a shoulder immobilizer. The patient awoke from anesthesia without complication and was taken to the recovery room in stable condition.
--- NOTE | 2022-08-29 07:06 | PDOC.DSDIS_ITS ---
Date of service: 08/29/22 Time of Service: 13:00 Discharge Plan Disposition Patient Disposition: Home Discharge Details Attending Provider: Graham Ravi Primary Care Provider: Adin Ortiz Home Meds and New Rx's Prescriptions: New aspirin 81 mg tablet,delayed release (DR/EC) 81 mg PO DAILY 7 Days Qty: 7 0RF ibuprofen 800 mg tablet 800 mg PO BID PRN (Reason: pain, moderate) Qty: 40 0RF oxycodone 5 mg tablet 5 - 10 mg PO Q4H MDD 30 mg PRN (Reason: moderate to severe pain) Qty: 18 0RF Continued cetirizine 10 mg tablet 10 mg PO DAILY PRN PRN tamsulosin 0.4 mg capsule 0.4 mg PO DAILY cyclobenzaprine 5 mg tablet 5 mg PO TID PRN glucos sul [id number]-cjyak-C-Mn [Glucosamine Chondroitin] 1 tab PO BID acetaminophen [Mapap (acetaminophen)] 325 mg tablet 650 mg PO Q4H PRN polyvinyl alcohol [Artificial Tears (polyvin alc)] 1.4 % drops 1 drp OP BID PRN Saline Nasal 0.65 % aerosol,spray 1 spray ANTOINETTE BID PRN Patient Comments: [place] each nostril Ultra CoQ10 75 mg capsule 75 mg PO DAILY zolpidem [Ambien CR] 6.25 mg tablet,ext release multiphase 6.25 mg PO QHS rosuvastatin 10 mg tablet 10 mg PO DAILY verapamil 120 MG tablet extended release 120 mg PO DAILY AM magnesium 250 mg Tablet 250 mg PO DAILY oxycodone 5 mg tablet 5 - 10 mg PO Q4H MDD 30 mg PRN (Reason: moderate to severe pain) Qty: 9 0RF Discontinued ibuprofen 200 mg tablet 200 mg PO Q6H PRN Discharge Instructions Additional Instructions: Surgery: Right reverse total shoulder arthroplasty (constrained liner) Activity: Do not lift anything heavier than a coffee. You may use your arm gently/lightly for activities of daily living keeping your forearm reasonably near your body. Do not carry anything heavy. No weightbearing or pushing up off of this extremity. You should use the sling whenever you are out of the house for about 1 month. You may have to adjust the abduction pillow or remove it for comfort. At home it is best to remove the sling and rest the arm on a pillow at your side or support the operative side with your other hand. A physical therapy prescription will be sent electronically to start in about 3 weeks. Reverse TSA Protocol: Modified AROM OK Postoperative Weeks 0-6 ?Immobilization: Sling may be removed at home and for therapeutic exercises ?Motion exercises: Pendulum exercises, elbow range- of-motion exercises, wrist zardt-ss-ezvvpy exercises, and remotely operated vehicle strengthening ?Restrictions: No active internal rotation or backwards extension Postoperative Weeks 6-12 ?Immobilization: Sling discontinued ?Motion exercises: Shoulder passive range of motion, advancing to active- assisted range of motion, and finally active range of motion with a goal of forward flexion to 90? and external rotation of 20? ?Strengthening exercises: Light, resisted forward flexion, external rotation, and abduction limited to isometric exercises and therapy bands with concentric motions only. Continue remotely operated vehicle strengthening ?Restrictions: No resisted internal rotation or backwards extension. No scapular retraction exercises with therapy bands Postoperative Months 3-12 ?Motion exercises: Increase ztyxe-ms-cczptr exercises to achieve full motion, with passive stretching at end ranges ?Strengthening: Begin resisted, internal rotation and backwards extension initially with isometric exercises advancing to light therapy bands and then weights. Advance other shoulder strengthening exercises to include the rotator cuff, deltoid, and scapular stabilizers. Advance to functional strengthening, including plyometric exercises and core strengthening. Prescriptions: Aspirin 81 mg take 1 daily to prevent a blood clot for 2 weeks Ibuprofen 800 mg take 1 every 12 hours with a meal as needed for moderate pain Oxycodone 5 mg take 1-2 every 4-6 hours as needed for severe pain You may use uwnh-lke-oldtzbl Tylenol (acetaminophen) as needed for mild pain. These pain medications may be taken all at once or in different combinations as needed. Also, recommend Colace (docusate) as a stool softener as surgery and pain medicine cause constipation. You may try bgwb-vqd-[id number] diphenhydramine (Benadryl) 25-50 mg nightly as a sleep aid Dressings: Leave dressing in place until follow-up. Keep clean and dry at all times. No showers please. Follow-up: 10-[address] Ravi You may take off the leg compression stockings this evening at home. You may also leave them on a few days longer if you have a history of leg swelling or edema. Please call the office during business hours with any questions or concerns. Let us know right away if you develop any redness, drainage, fevers, chest pain, or trouble breathing. Do not drink alcohol or drive for at least 24 hours after anesthesia. Discharge Orders Discharge Orders: Discharge Order (Routine); Ordered 08/29/22 Ordered By: Graham Ravi DS: Diagnosis Discharge Diagnosis (1) Rotator cuff arthropathy of right shoulder: Status: Acute
--- NOTE | 2022-08-29 07:16 | W.ANESPRE ---
General Info Date of Service Date Performed: 08/29/22 Height: 5 ft 6 in Weight: 78.3 kg Body Mass Index (BMI): 27.8 Surgical Procedure: Operation Date: 08/29/22 07:40 Proposed Procedure Side Surgeon p Shoulder Reverse Total Arthroplasty and any other indicated procedures Right Graham Ravi MD Meds Allergies and Home Medications Allergies Allergy/AdvReac Type Severity Reaction Status Date / Time amoxicillin Allergy Severe ANAPHYLAXIS Verified 08/29/22 06:11 gabapentin [From Neurontin] Allergy Mild hives Verified 08/29/22 06:11 cyclobenzaprine AdvReac Intermediate LETHARGY Verified 08/29/22 06:11 tetracycline AdvReac Intermediate LETHARGY Verified 08/29/22 06:11 erythromycin base AdvReac Unknown nausea Verified 08/29/22 06:11 Tetracyclines AdvReac Unknown vomiting Verified 08/29/22 06:11 Penicillins AdvReac LETHARGY Verified 08/29/22 06:11 Home Medication Medication Instructions Recorded verapamil 120 mg tablet,extended 120 mg PO DAILY AM 02/14/15 release cetirizine 10 mg tablet 10 mg PO DAILY PRN PRN 01/29/18 acetaminophen 325 mg tablet (Mapap 650 mg PO Q4H PRN 02/20/18 (acetaminophen)) polyvinyl alcohol 1.4 % eye drops 1 drp ophthalmic (eye) BID PRN 02/20/18 (Artificial Tears (polyvinyl alcohol)) sodium chloride 0.65 % nasal spray 1 spray intranasal BID PRN 02/20/18 aerosol (Saline Nasal) cyclobenzaprine 5 mg tablet 5 mg PO TID PRN 02/06/21 tamsulosin 0.4 mg capsule 0.4 mg PO DAILY 02/06/21 zolpidem 6.25 mg tablet,extended 6.25 mg PO QHS 07/10/21 release,multiphase (Ambien CR) glucos sul 1ANx-zou-jxoqm-C-Mn 1 tab PO BID 07/13/21 [Glucosamine Chondroitin] coenzyme Q10 75 mg capsule (Ultra 75 mg PO DAILY 10/23/21 CoQ10) rosuvastatin 10 mg tablet 10 mg PO DAILY 08/01/22 oxycodone 5 mg tablet 5 - 10 mg PO Q4H PRN moderate to 08/02/22 severe pain #9 tabs magnesium 250 mg tablet 250 mg PO DAILY 08/28/22 aspirin 81 mg tablet,delayed 81 mg PO DAILY prevent blood clot 08/29/22 release 7 days #7 tabs ibuprofen 800 mg tablet 800 mg PO BID PRN pain, moderate 08/29/22 #40 tabs oxycodone 5 mg tablet 5 - 10 mg PO Q4H PRN moderate to 08/29/22 severe pain #18 tabs Current Visit Medications: Current Medications Generic Name Dose Route Start Last Admin Trade Name Freq PRN Reason Stop Dose Admin Ringer's Solution 1,000 mls @ 30 mls/hr 08/29/22 06:00 08/29/22 06:32 IV 09/27/22 23:59 30 mls/hr INFUSION CATHERINE Administration Cefazolin Sodium/Dextrose 2 gm in 50 mls @ 100 mls/hr 08/29/22 06:00 Ancef Duplex IVPB 09/27/22 23:59 PREOP CATHERINE Tranexamic Acid 1,000 mg/ 60 mls @ 360 mls/hr 08/29/22 06:00 Sodium Chloride IVPB 08/29/22 18:00 PREOP CATHERINE IV Miscellaneous Supplies 1 each 08/29/22 06:00 Iv Access IV 09/27/22 23:59 DIRECTED CATHERINE Lactobacillus Acidophilus/Casei 1 cap 08/29/22 12:30 L. Acidophilus, Casei, Rhamnosus Cap PO 09/28/22 12:29 DAILY CATHERINE Oxycodone HCl 0 mg 08/29/22 07:04 Oxycodone 5 Mg Tab PO 09/28/22 07:03 Q3H PRN PRN Pain Sodium Chloride 0 ml 08/29/22 06:00 Normal Saline Flush 10 Ml Syr IV 09/27/22 23:59 PRN PRN Sodium Chloride 0 ml 08/29/22 06:00 Normal Saline 10 Ml Vial IJ 09/27/22 23:59 DIRECTED PRN Sterile Water 0 ml 08/29/22 06:00 Water,Injection,Sterile 10 Ml Vial IJ 09/27/22 23:59 DIRECTED PRN PFSH Active Problems Active Problems: Problem Status Onset Code Chronic pain 08/21/16 G89.29 Migraine headache 05/23/14 G43.909 Lumbosacral spondylosis without myelopathy M47.817 Rotator cuff arthropathy of right shoulder M12.811 Screening for colon cancer Z12.11 Spinal stenosis M48.00 Medical History Medical History (Updated 08/29/22 @ 07:14 by Graham Ravi MD) Anxiety Biceps tendinitis of right shoulder Bursitis of right shoulder Cervical spinal stenosis Cervicalgia Depression Enlarged prostate with lower urinary tract symptoms (LUTS) Erectile dysfunction Great toe pain History of depression HTN (hypertension) Hyperlipidemia Impingement syndrome of right shoulder Insomnia Low back pain Lower urinary tract infection Onychomycosis FERNANDEZ (obstructive sleep apnea) Pain in right shoulder Primary osteoarthritis, right shoulder Radiculopathy, lumbosacral region Right rotator cuff tear Rotator cuff syndrome Rupture of right proximal biceps tendon Sciatica Trigger finger, right middle finger Depo-Medrol injection: 03/12/2022, 09/24/2021 Surgical History Surgical History H/O vasectomy History of cervical spinal surgery History of colonoscopy (~02/17/06) History of surgery ulnar fracture repair History of vasectomy S/P trigger finger release Tobacco Smoking/Tobacco Use Status: Never Alcohol Alcohol Intake: former Substance Use Substance use: Occasionally Substance use type: marijuana Vital Signs and Lab Results Vital Signs Most Recent Vital Signs in EMR: Most Recent Vital Signs Temp Pulse Resp BP Pulse Ox 36.4 C L 52 L 16 127/74 98 08/29/22 06:15 08/29/22 06:15 08/29/22 06:15 08/29/22 06:15 08/29/22 06:15 Lab Results Blood Type / Crossmatch: No Data to Display Complete Blood Count: No Data to Display Complete Metabolic Panel: No Data to Display Liver Function Panel: No Data to Display Coagulation Panel: No Data to Display Cardiac Panel: No Data to Display Arterial Blood Gas: No Data to Display Venous Blood Gas: No Data to Display Pancreas Panel: No Data to Display Thyroid Panel: No Data to Display Infectious Disease: No Data to Display Blood Cultures: No Data to Display Toxicology Panel: No Data to Display Anesthesia Assessment and Plan Anesthesia History Personal History: No History of Anesthesia Complications Family History: No Family History of Anesthesia Complications Exercise Tolerance Exercise Tolerance: Metabolic Equivalents>4 Cardiac & Pulmonary Exam Cardiac Exam: Normal S1/S2 Heart Sounds Pulmonary Exam: Clear Bilateral Breath Sounds Implantable Cardiac Device Does patient have a Pacemaker or an ICD?: No Airway Exam Known Difficult Airway: No Mallampati Class: 3 Mouth Opening: Normal (> 3cm) Thyromental Distance: Greater than 3 cm Neck Range of Motion: Limited ROM Neck Circumference: Normal Teeth Condition: Normal Dentition ASA Classification ASA Score: ASA 2 Emergency Case?: No NPO Status NPO Status: NPO Clears >2 hours, Solids >8 hours Anesthesia Plan Resuscitation Status: Full Code Anesthesia Technique: General Anesthesia Airway Planned: Endotracheal Tube Monitors Used: Standard Monitors
[2022-08-29] MEDS: ceFAZolin 2 GM/50 ML BAG IVPB (07:45)
--- NOTE | 2022-08-29 08:42 | W.ANESNERVE ---
Nerve Block Single Injection Procedure Date and Time Date Performed: 08/29/22 Procedure Start: 07:15 Location Where Procedure Performed Procedure Location: Day Surgery Unit Reason Performed: Postoperative Analgesia Requesting Provider: Graham Ravi Timeout Performed Timeout Performed: Yes Monitoring Used ECG, Blood Pressure, SpO2 and See EMR for corresponding vital signs Sterility Sterility: Hand Hygiene, Surgical Cap, Surgical Mask, Sterile Gloves and Chlorhexidine Sedation Given During Procedure Sedation Given (Indicate Dose Given): No Sedation given Patient Mental Status Patient Mental Status: Awake Nerve Block 1st Nerve Block: Laterality: Right Block Type: Interscalene Ultrasound Image Saved?: Yes Needle / Catheter Used: 100mm SonoPlex II Local Anesthetic Bolus (Indicate Dose Given): Lidocaine used for local infiltration of skin (1mL), Bupivacaine 0.5% Dose:: 10mL and Exparel Dose:: 10mL Additives (Indicate Dose Given): Normal Saline (5mL) Ultrasound: Sterile probe cover and gel used Nerve Stimulator: Supplement to Ultrasound use and No twitch or parasthesia noted < 0.5 mA Paresthesia: None Procedure Tolerated: No Complications and Patient tolerated well Procedure Outcome: Successful Performed By: Jessica Briones Supervised By: [place]
[2022-08-29] MEDS: ceFAZolin 1 GM/50 ML BAG IVPB (11:54)
--- NOTE | 2022-08-29 12:18 | W.ANESPOSTOP ---
Postoperative Evaluation Date, Time and Location Date Performed: 08/29/22 Time Performed: 12:19 Patient Location: PACU Vital Signs Most Recent Imported Vital Signs: Most Recent Vital Signs Temp Pulse Resp BP Pulse Ox 36.6 C 57 L 19 86/51 L 94 08/29/22 12:04 08/29/22 12:04 08/29/22 12:04 08/29/22 12:04 08/29/22 12:04 Pain Score Most Recent Pain Score: Most Recent Pain Score Pain Level 3 08/29/22 07:25 Assessment Mental Status: Awake (Alert & Oriented to Patient Baseline) Airway and Respiratory Function: Patent airway with normal (patient baseline) respiratory exam Cardiovascular Function: Hemodynamically Stable Hydration Status: Adequately Hydrated Nausea & Vomiting: No Nausea or Vomiting Pain: Pt. Denies Any Pain Peripheral Nerve Block: Regional nerve block not resolved at time of post operative discharge
--- NOTE | 2022-08-30 14:21 | PDOC.ANES ---
Date of service: 08/30/22 Time of Service: 14:21 Anesthesia Note Report Anesthesia Note: I spoke to Mohan just now on the phone. He states that he has noticed he is breathing heavier when exerting himself around the house. We discussed again, that his right hemidiaphragm is likely still paralyzed from the nerve block administered for surgery yesterday. I explained this will likely improve over the next 24 hours. I reviewed his post op shoulder X-ray which shows expected findings. He denies any chest pain, pre/syncope, and states his breathing just feels a little harder when exerting himself. After discussion he will go to the ED or call 911 if we becomes more concerned or will call to talk with programmer operator numerical control anesthesia over the weekend. He does not sound SOB on phone and states he is already feeling better and he just wanted to talk to someone to make sure this is normal, as he was told before the nerve block. Mohan seems very satisfied with thew discussion and will reach out or go to the ED if he develops concern.
== END 2022-08-29 14:30 | disposition home or self-care (01) ==
PROVIDERS: PCP Family Medicine; Visit Provider Student in an Organized Health Care Education/Training Program
PROC: (CPT 23472; principal; 2022-08-29 07:30)
DX: M19.011 Primary osteoarthritis, right shoulder (principal); M66.811 Spontaneous rupture of other tendons, right shoulder; M75.41 Impingement syndrome of right shoulder; F41.9 Anxiety disorder, unspecified; I10 Essential (primary) hypertension; E78.5 Hyperlipidemia, unspecified
CPT/HCPCS: 23472; 76942; 73030; J0131; J0690; J1100; J2370; J2405; J2704

== ENCOUNTER 2022-09-11 11:20 | Outpatient (CLI) | payer MEDICARE, OTHER, SELFPAY ==
--- NOTE | 2022-09-11 10:45 | DI.RAD_ITS ---
Exam(s) XR SHOULDER RT COMPLETE 2+V EXAM: XR SHOULDER RT COMPLETE 2+V INDICATION: F/U RTSA. COMPARISON: CR XR SHOULDER RT COMPLETE 2+V from 08/29/2022 TECHNIQUE: 2D digital imaging was performed. Two views. FINDINGS: There has been no change in the alignment of the reverse shoulder prosthesis. There are no abnormal surrounding bony lucencies. DATA REPOSITORY: RADIATION DOSE DELIVERED:
== END 2022-09-11 11:21 | disposition home or self-care (01) ==
LOC: DIORS 11:20
PROVIDERS: PCP Family Medicine; Referring Provider Family Medicine; Visit Provider Student in an Organized Health Care Education/Training Program
DX: M12.811 Other specific arthropathies, not elsewhere classified, right shoulder (principal); Z47.89 Encounter for other orthopedic aftercare
CPT/HCPCS: 73030

== ENCOUNTER 2022-10-16 10:34 | Outpatient (CLI) | payer MEDICARE, OTHER, SELFPAY ==
--- NOTE | 2022-10-16 10:15 | DI.RAD_ITS ---
Exam(s) XR SHOULDER RT COMPLETE 2+V EXAM: XR SHOULDER RT COMPLETE 2+V INDICATION: F/U RIGHT RTSA. COMPARISON: CR XR SHOULDER RT COMPLETE 2+V from 09/11/2022 TECHNIQUE: 2D digital imaging was performed. Two views. FINDINGS: There has been no change in the alignment of the reverse shoulder prosthesis. There are no suspiciou s surrounding bony lucencies. DATA REPOSITORY: RADIATION DOSE DELIVERED:
--- NOTE | 2022-10-16 10:45 | DI.RAD_ITS ---
Exam(s) XR SHOULDER LT COMPLETE 2+V EXAM: XR SHOULDER LT COMPLETE 2+V CLINICAL HISTORY: pain. TECHNIQUE: 2D digital imaging was performed. Three views. COMPARISON: CR XR SHOULDER RT COMPLETE 2+V from 10/16/2022 FINDINGS: BONES: No acute fracture is present. No bony destructive lesion is seen. Mild spurring at greater tu berosity JOINTS: No dislocation present. Mild spurring at the AC joint and undersurface of acromion. Glenohu meral joint is maintained.. SOFT TISSUE: Normal. IMPRESSION: Mild degenerative changes. DATA REPOSITORY: RADIATION DOSE DELIVERED:
== END 2022-10-16 10:35 | disposition home or self-care (01) ==
PROVIDERS: PCP Family Medicine; Referring Provider Family Medicine; Visit Provider Student in an Organized Health Care Education/Training Program
DX: Z47.89 Encounter for other orthopedic aftercare; M12.812 Other specific arthropathies, not elsewhere classified, left shoulder
CPT/HCPCS: 20610; 99213; 73030; J1030

== ENCOUNTER → 2022-12-04 10:24 | Outpatient (BNVA) | payer MEDICARE, OTHER, SELFPAY | PROVIDERS: PCP Family Medicine; Referring Provider Family Medicine; Visit Provider Student in an Organized Health Care Education/Training Program | DX: M12.812 Other specific arthropathies, not elsewhere classified, left shoulder (principal); M12.811 Other specific arthropathies, not elsewhere classified, right shoulder | CPT/HCPCS: 99213 ==

== ENCOUNTER 2023-02-18 17:59 | Outpatient (REF) | payer MEDICARE, OTHER, SELFPAY ==
[2023-02-18 19:28] LABS: ALT 31 U/L (16-63); AST 23 U/L (15-37); Albumin 4.1 g/dL (3.4-5.0); Alkaline Phosphatase 51 U/L (46-116); Anion Gap 8.5 mmol/L (3-11); BUN 15 mg/dL (7-18); Bilirubin, Total 0.4 mg/dL (0.2-1.0); CO2 28.5 mmol/L (21.0-32.0); Calcium 9.6 mg/dL (8.5-10.1); Calculated LDL 75 mg/dL (<100); Chloride 103 mmol/L (98-107); Cholesterol 161 mg/dL (<200); Estimated GFR 80.97 (mL/min/1.73m2); Glucose 107 mg/dL (74-106); HDL Cholesterol 50 mg/dL (40-60); Potassium 4.2 mmol/L (3.5-5.1); Sodium 140 mmol/L (136-145); Total Protein 7.2 g/dL (6.4-8.2); Triglyceride 180 mg/dL (<150)
== END 2023-02-18 18:00 | disposition home or self-care (01) ==
LOC: NCHCN 17:59
PROVIDERS: PCP Family Medicine; Visit Provider Family Medicine
DX: I10 Essential (primary) hypertension (principal); E78.5 Hyperlipidemia, unspecified
CPT/HCPCS: 80053; 80061

== ENCOUNTER → 2023-03-20 08:48 | Outpatient (BNVA) | payer MEDICARE, OTHER, SELFPAY | PROVIDERS: PCP Family Medicine; Referring Provider Family Medicine; Visit Provider Physical Therapy Assistant | DX: Z12.11 Encounter for screening for malignant neoplasm of colon (principal) ==

== ENCOUNTER → 2023-04-03 08:50 | Outpatient (BNVA) | payer MEDICARE, OTHER, SELFPAY | PROVIDERS: PCP Family Medicine; Referring Provider Family Medicine; Visit Provider Surgery ==

== ENCOUNTER 2023-06-02 18:08 | Outpatient (REF) | payer MEDICARE, OTHER, SELFPAY ==
[2023-06-02 15:32] LABS: HCT 42.5 % (40.0-50.0); HGB 14.4 g/dL (13.5-17.5); MCH 32.3 pg (27.0-33.0); MCHC 33.9 % (32.0-36.0); MCV 95 fL (80-95); MPV 9.9 fL (8.0-11.0); Platelet Count 294 10^3/uL (130-400); RBC 4.46 10^6/uL (4.36-5.78); RDW 12.3 % (11.8-14.1); RDW-SD 43.2 fL; WBC 9.91 10^3/uL (4.4-10.8)
[2023-06-02 16:26] LABS: ALT 28 U/L (16-63); AST 22 U/L (15-37); Albumin 4.3 g/dL (3.4-5.0); Alkaline Phosphatase 55 U/L (46-116); Anion Gap 7.8 mmol/L (3-11); BUN 20 mg/dL (7-18); Bilirubin, Total 0.5 mg/dL (0.2-1.0); CO2 30.2 mmol/L (21.0-32.0); CREATININE 0.9 mg/dL (0.70-1.30); Calcium 9.7 mg/dL (8.5-10.1); Chloride 103 mmol/L (98-107); Estimated GFR 91.88 (mL/min/1.73m2); Glucose 118 mg/dL (74-106); Sodium 141 mmol/L (136-145); TSH (W/Ref FT4) 0.75 uIU/mL (0.36-3.74); Total Protein 7.3 g/dL (6.4-8.2)
== END 2023-06-02 18:09 | disposition home or self-care (01) ==
LOC: NCHCN 18:08
PROVIDERS: PCP Family Medicine; Referring Provider Family Medicine; Visit Provider Family Medicine
DX: I48.91 Unspecified atrial fibrillation (principal)
CPT/HCPCS: 80053; 85027; 84443

== ENCOUNTER 2023-06-06 11:04 | Outpatient (CLI) | payer MEDICARE, OTHER, SELFPAY ==
--- NOTE | 2023-06-06 11:00 | RT.EKG_ITS ---
APPROVED REPORT Exam: Resting ECG Reason for Exam: baseline Patient Location: O HR:99 bpm ECG Measurements Heart Rate 99 AXIS TX [id number] P [id number] QRSd 86 QRS -30 QT 340 T 49 QTc 437 Conclusion Atrial fibrillation...V-rate 74-113, irreg A-activity Left axis deviation...QRS axis (-30,-90) early transition...QRS area>0 in V2 Baseline wander in lead(s) V4
== END 2023-06-06 11:05 | disposition home or self-care (01) ==
LOC: DI.CARD 11:06
PROVIDERS: PCP Family Medicine; Referring Provider Family Medicine; Visit Provider Internal Medicine Cardiovascular Disease
DX: I48.91 Unspecified atrial fibrillation (principal)
CPT/HCPCS: 93010

== ENCOUNTER → 2023-06-06 11:04 | Outpatient (BNVA) | payer MEDICARE, OTHER, SELFPAY | PROVIDERS: PCP Family Medicine; Referring Provider Family Medicine; Visit Provider Internal Medicine Cardiovascular Disease | DX: I48.91 Unspecified atrial fibrillation (principal); I10 Essential (primary) hypertension | CPT/HCPCS: 93005; 99214 ==

== ENCOUNTER → 2023-07-07 02:22 | Outpatient (CLI) | payer MEDICARE, OTHER, SELFPAY ==
--- NOTE | 2023-07-07 14:30 | DI.US_ITS ---
APPROVED REPORT EXAM: Comprehensive 2D, Doppler, and color-flow Echocardiogram Patient Location: [facility] [employer] Associate: Lito Dumont RDCS (AE) Indications: AFIB Conclusion Normal left ventricular wall thickness and chamber size. Ejection fraction is 55-60%. Wall motion i s normal Normal right ventricular size and function Both atria are moderately enlarged Aortic valve is sclerotic and trileaflet without stenosis or regurgitation Normal mitral valve with moderate regurgitation Mild tricuspid regurgitation Estimated right ventricular systolic pressure is 22 mmHg Ascendina aorta 3.68 cm Wall motion Left Ventricle The left ventricle is normal size. The left ventricular systolic function is normal. The left ventric ular ejection fraction is within the normal range. There is normal left ventricular wall thickness. T here is normal LV segmental wall motion. There is no ventricular septal defect visualized. LVEF is 55 -60%. Right Ventricle The right ventricle is normal size. The right ventricular systolic function is normal. Atria Left atrium is moderately dilated. Right atrium is moderately dilated. The interatrial septum is inta ct with no evidence for an atrial septal defect. Aortic Valve The Aortic valve is sclerotic. Aortic valve is trileaflet. There is no aortic valvular stenosis. No a ortic regurgitation is present. Mitral Valve The mitral valve is normal in structure. No evidence of mitral valve stenosis. Moderate mitral regurg itation. Tricuspid Valve The tricuspid valve is normal in structure. There is no tricuspid valve stenosis. Mild tricuspid regu rgitation. The RVSP is 22.4 mmHg. Pulmonic Valve The pulmonary valve is normal in structure. There is no pulmonic valvular stenosis. There is no pulmo torres valvular regurgitation. Great Vessels The aortic root is normal in size. The ascending aorta is mildly dilated. Aortic arch is normal in ca liber. IVC is normal in size and collapses >50% with inspiration. Pericardium There is no pericardial effusion. 2D Dimensions IVSD d PLAX 1.17 cm M: 0.6-1.2 Ao Root d 3.48 cm M: 3.1 - 3.7 LVPW d PLAX 1.15 cm M: 0.6 - 1.2 Ao Asc Diam d 3.68 cm M: 2.6 - 3.4 LVID d PLAX 4.41 cm M: 4.2 - 5.8 LVDs 3.10 cm M: 2.5 - 4.0 LV EF Teichholz 56.9 % FS 29.68 % LV EDV (Teich) 88.1 mL LV ESV (Teich) 37.9 mL Stroke Vol Index (Teich) 27.58 M-Mode TAPSE 1.87 cm (M/F) >1.7 Auto EF LV EDV A4C 126.7 mL LV EDV A2C 90.8 mL LV EDV BP 110.5 mL LV ESV A4C 56.9 mL LV ESV A2C 38.3 mL LV ESV BP 47.9 mL LVEF(%) A4C 55.1 % LVEF(%) A2C 57.9 % LVEF(%) BP 56.6 % LV SV A4C 69.8 ml LV SV A2C 52.6 ml LV SV BP 62.5 ml LV CO A4C 9.5 L/min LV CO A2C 5.5 L/min LV CO BP 7.5 L/min HR A4C 136.38 BPM HR A2C 105.27 BPM LV EDV Index (BP) LA Volume LA Length A4C 6.3 cm LA Length A2C 5.9 cm LA Area A4C s 22.17 cm2 LA Area A2C s 19.53 cm2 LA Vol A4C A-L 66.73 mL LA Vol A2C A-L 54.71 mL LA Vol Biplane A-L 62.1 mL LA Vol/BSA A4C A-L LA Vol/BSA A2C A-L LA Vol/BSA BP A-L 34.1 mL/m2 LA Vol A4C MOD 61.9 mL LA Vol A2C MOD 54.1 mL LA Vol BP MOD 59.1 mL RA Volume RA Area A4C 19.7 cm2 RA ESV A4C (A-L) 55.4mL RA Vol/BSA A4C A-L RA Length A4C 5.9 cm RA ESV A4C (MOD) 52.2mL LV Diastology MV E' medial 0.130 (>0.07 m/s) MV E' lateral 0.173 (>0.1 m/s) Aortic Valve AoV Vmax 1.70 m/s LVOT Vmax 1.27 m/s AoV Peak Grad 11.6 mmHg LVOT Peak Grad 6.5 mmHg AoV Area (Vmax) 2.40 cm2 LVOT VTI 0.199 m AoV VTI 0.249 m LVOT Mean Grad 3.1 mmHg AoV Mean Fei. 1.08 m/s LVOT SV 63.66 mL AoV Mean Grad 5.4 mmHg LVOT Diam s 2.00 cm AoV Area (VTI) 2.56 cm2 Velocity Ratio 0.75 Mitral Valve MV Vmax TIPS 0.96 m/s MR Vmax 5.12 m/s MV Mean Grad 1.9 (<2mmHg) MR VTI 1.050 m MV VTI 0.180 m MR Peak Grad 105.0 mmHg MR Mean Grad 78.9 mmHg MR PISA Radius 0.63 cm MR Aliasing Velocity 0.30 m/s Pulmonary Valve PV Vmax 1.09 (0.5-1.5 m/s) RVOT Vmax 0.80 m/s PV Peak Grad 4.8 mmHg RVOT Peak Gr. 2.6 mmHg PV Mean Fei 0.70 m/s RVOT VTI 0.113 m PV Mean Grad 2.3 mmHg RVOT Mean Gr. 1.3 mmHg Tricuspid Valve RA Pressure 3.00 mmHg TR Vmax 2.20 m/s TR Peak Grad 19.3 mmHg RVSP (TR) 22.4 mmHg
== END ==
PROVIDERS: PCP Family Medicine; Visit Provider Family Medicine
DX: I48.91 Unspecified atrial fibrillation (principal)
CPT/HCPCS: 93306

== ENCOUNTER 2023-07-10 08:14 | Outpatient (CLI) | payer MEDICARE, OTHER, SELFPAY ==
--- NOTE | 2023-07-10 08:00 | RT.EKG_ITS ---
APPROVED REPORT Exam: Resting ECG Reason for Exam: afib Patient Location: O HR:84 bpm ECG Measurements Heart Rate 84 AXIS [place] [id number] P [id number] QRSd 90 QRS -30 QT 359 T 45 QTc 425 Conclusion Atrial fibrillation...V-rate 74- 93, irreg A-activity Left axis deviation...QRS axis (-30,-90) Abnormal R-wave progression, early transition...QRS area>0 in V2 Baseline wander in lead(s) V1,V3,V4,V5
== END 2023-07-10 08:15 | disposition home or self-care (01) ==
LOC: DI.CARD 08:16
PROVIDERS: PCP Family Medicine; Visit Provider Internal Medicine Cardiovascular Disease
DX: I48.91 Unspecified atrial fibrillation (principal)
CPT/HCPCS: 93010

== ENCOUNTER → 2023-07-10 09:26 | Outpatient (BNVA) | payer MEDICARE, OTHER, SELFPAY | PROVIDERS: PCP Family Medicine; Referring Provider Family Medicine; Visit Provider Internal Medicine Cardiovascular Disease | DX: R94.31 Abnormal electrocardiogram [ECG] [EKG] (principal); I48.91 Unspecified atrial fibrillation | CPT/HCPCS: 93005; 99213 ==

== ENCOUNTER 2023-07-14 06:20 | Day surgery (SDC) | payer MEDICARE, OTHER, SELFPAY ==
--- NOTE | 2023-07-14 06:00 | RT.EKG_ITS ---
APPROVED REPORT Exam: Resting ECG Reason for Exam: Pre op EKG Patient Location: O HR:68 bpm ECG Measurements Heart Rate 68 AXIS [place] [id number] P [id number] QRSd 91 QRS -32 QT 417 T 42 QTc 444 Conclusion Atrial fibrillation...V-rate 70- 81, irreg A-activity Left axis deviation...QRS axis (-30,-90)
[2023-07-14 06:27] VITALS: BP 115/84; PULSE 75; RESP 16; TEMP 36.5; O2SAT 98
--- NOTE | 2023-07-14 06:53 | W.ANESPRE ---
General Info Date of Service Date Performed: 07/14/23 Height: 5 ft 6 in Weight: 75.7 kg Body Mass Index (BMI): 26.9 Surgical Procedure: Operation Date: 07/14/23 07:30 Proposed Procedure Side Surgeon p Cardioversion Karon Bill MD Meds Allergies and Home Medications Allergies Allergy/AdvReac Type Severity Reaction Status Date / Time amoxicillin Allergy Severe ANAPHYLAXIS Verified 07/14/23 06:23 gabapentin [From Neurontin] Allergy Mild hives Verified 07/14/23 06:23 cyclobenzaprine AdvReac Intermediate LETHARGY Verified 07/14/23 06:23 tetracycline AdvReac Intermediate LETHARGY Verified 07/14/23 06:23 erythromycin base AdvReac Unknown nausea Verified 07/14/23 06:23 Tetracyclines AdvReac Unknown vomiting Verified 07/14/23 06:23 Penicillins AdvReac LETHARGY Verified 07/14/23 06:23 Home Medication Medication Instructions Recorded verapamil 120 mg tablet,extended 120 mg PO DAILY AM 02/14/15 release acetaminophen 325 mg tablet (Mapap 650 mg PO Q4H PRN 02/20/18 (acetaminophen)) tamsulosin 0.4 mg capsule 0.4 mg PO DAILY 02/06/21 zolpidem 6.25 mg tablet,extended 6.25 mg PO QHS 07/10/21 release,multiphase (Ambien CR) rosuvastatin 10 mg tablet 10 mg PO DAILY 08/01/22 ibuprofen 800 mg tablet 800 mg PO BID PRN pain, moderate 08/29/22 #40 tabs apixaban 5 mg tablet 5 mg PO BID 06/04/23 cetirizine 10 mg tablet 10 mg PO DAILY PRN 06/04/23 coenzyme Q10 100 mg capsule 100 mg PO DAILY 06/04/23 (CoQ-10) magnesium citrate 100 mg tablet 100 mg PO DAILY 06/04/23 omega-3 fatty acids 1,250 mg 1,250 mg PO DAILY 06/04/23 capsule skullcap 100 mg capsule 100 mg PO DAILY 07/10/23 Current Visit Medications: Current Medications Generic Name Dose Route Start Last Admin Trade Name Freq PRN Reason Stop Dose Admin Sodium Chloride 1,000 mls @ 30 mls/hr 07/14/23 06:00 Saline 1000ml Bag IV 07/14/23 23:59 PREOP CATHERINE Sodium Chloride 1,000 mls @ 30 mls/hr 07/14/23 06:00 Saline 1000ml Bag IV 08/13/23 05:59 [facility] IV Miscellaneous Supplies 1 each 07/14/23 06:00 Iv Access IV 07/14/23 23:59 DIRECTED CATHERINE Sodium Chloride 0 ml 07/14/23 06:00 Normal Saline Flush 10 Ml Syr IV 07/14/23 23:59 PRN PRN Sodium Chloride 0 ml 07/14/23 06:00 Normal Saline 10 Ml Vial IJ 07/14/23 23:59 DIRECTED PRN Sterile Water 0 ml 07/14/23 06:00 Water,Injection,Sterile 10 Ml Vial IJ 07/14/23 23:59 DIRECTED PRN PFSH Active Problems Active Problems: Problem Status Onset Code Dyspnea on exertion R06.09 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 Atrial fibrillation I48.91 Rotator cuff arthropathy of left shoulder M12.812 Chronic pain 08/21/16 G89.29 Migraine headache 05/23/14 G43.909 Lumbosacral spondylosis without myelopathy M47.817 Rotator cuff arthropathy of right shoulder M12.811 Screening for colon cancer Z12.11 Spinal stenosis M48.00 Medical History Medical History Rupture of right proximal biceps tendon Primary osteoarthritis, right shoulder Bursitis of right shoulder Impingement syndrome of right shoulder Biceps tendinitis of right shoulder Right rotator cuff tear Depression Insomnia Trigger finger, right middle finger Depo-Medrol injection: 03/12/2022, 09/24/2021 History of depression Great toe pain Onychomycosis Erectile dysfunction Cervical spinal stenosis FERNANDEZ (obstructive sleep apnea) HTN (hypertension) Sciatica Rotator cuff syndrome Lower urinary tract infection Cervicalgia Anxiety Enlarged prostate with lower urinary tract symptoms (LUTS) Hyperlipidemia Pain in right shoulder Low back pain Radiculopathy, lumbosacral region Surgical History Surgical History H/O vasectomy S/P trigger finger release History of colonoscopy (~02/17/06) History of cervical spinal surgery History of vasectomy History of surgery ulnar fracture repair Tobacco Smoking/Tobacco Use Status: Former Tobacco Use Alcohol Alcohol Intake: former Substance Use Substance use: Rarely Substance use type: marijuana Vital Signs and Lab Results Vital Signs Most Recent Vital Signs in EMR: Most Recent Vital Signs Temp Pulse Resp BP Pulse Ox 36.5 C 75 16 115/84 98 07/14/23 06:27 07/14/23 06:27 07/14/23 06:27 07/14/23 06:27 07/14/23 06:27 Lab Results Blood Type / Crossmatch: No Data to Display Complete Blood Count: No Data to Display Complete Metabolic Panel: No Data to Display Liver Function Panel: No Data to Display Coagulation Panel: No Data to Display Cardiac Panel: No Data to Display Arterial Blood Gas: No Data to Display Venous Blood Gas: No Data to Display Pancreas Panel: No Data to Display Thyroid Panel: No Data to Display Infectious Disease: No Data to Display Blood Cultures: No Data to Display Toxicology Panel: No Data to Display Anesthesia Assessment and Plan Anesthesia History Personal History: No History of Anesthesia Complications Family History: No Family History of Anesthesia Complications Exercise Tolerance Exercise Tolerance: Metabolic Equivalents>4 Pertinent Negatives Pertinent Negatives: No Symptoms of GERD Cardiac & Pulmonary Exam Cardiac Exam: Normal S1/S2 Heart Sounds Pulmonary Exam: Clear Bilateral Breath Sounds Implantable Cardiac Device Does patient have a Pacemaker or an ICD?: No Airway Exam Known Difficult Airway: No Mallampati Class: 3 Mouth Opening: Normal (> 3cm) Thyromental Distance: Greater than 3 cm Neck Range of Motion: Limited ROM Neck Circumference: Normal Teeth Condition: Normal Dentition ASA Classification ASA Score: ASA 2 Emergency Case?: No NPO Status NPO Status: NPO Clears >2 hours, Solids >8 hours Anesthesia Plan Resuscitation Status: Full Code Anesthesia Technique: General Anesthesia Airway Planned: Natural Airway Monitors Used: Standard Monitors
[2023-07-14 06:54] VITALS: BMI 26.9
[2023-07-14] MEDS: Normal Saline 1,000 ML 30 ML IV (06:58)
--- NOTE | 2023-07-14 07:30 | RT.EKG_ITS ---
APPROVED REPORT Exam: Resting ECG Reason for Exam: Post op EKG Patient Location: O HR:53 bpm ECG Measurements Heart Rate 53 AXIS LA 198 P 19 QRSd 87 QRS -32 QT 438 T 37 QTc 412 Conclusion Sinus bradycardia...rate< 60 Left axis deviation...QRS axis (-30,-90)
--- NOTE | 2023-07-14 08:01 | PDOC.DSDIS_ITS ---
Date of service: 07/14/23 Time of Service: 08:01 Discharge Plan Disposition Patient Disposition: Home Condition: Stable Discharge Details Attending Provider: Karon Bill Primary Care Provider: Adin Ortiz [place] Meds and New Rx's Prescriptions: No Action tamsulosin 0.4 mg capsule 0.4 mg PO DAILY acetaminophen [Mapap (acetaminophen)] 325 mg tablet 650 mg PO Q4H PRN skullcap 100 mg capsule 100 mg PO DAILY zolpidem [Ambien CR] 6.25 mg tablet,ext release multiphase 6.25 mg PO QHS rosuvastatin 10 mg tablet 10 mg PO DAILY coenzyme Q10 [CoQ-10] 100 mg capsule 100 mg PO DAILY magnesium citrate 100 mg tablet 100 mg PO DAILY omega-3 fatty acids 1,250 mg capsule 1,250 mg PO DAILY apixaban 5 mg tablet 5 mg PO BID cetirizine 10 mg tablet 10 mg PO DAILY PRN verapamil 120 MG tablet extended release 120 mg PO DAILY AM ibuprofen 800 mg tablet 800 mg PO BID PRN (Reason: pain, moderate) Qty: 40 0RF Discharge Orders Discharge Orders: Discharge Order (Routine); Ordered 07/14/23 Ordered By: Karon Bill
--- NOTE | 2023-07-14 08:07 | W.CARDVER ---
Date of service: 07/14/23 Time of Service: 08:07 Cardioversion DATE OF PROCEDURE: 07/14/23 PRE-OP DIAGNOSES: Atrial fibrillation POST-OP DIAGNOSES: same Procedure Description: Synchronized cardioversion Patient presents for synchronized cardioversion for atrial fibrillation. The procedure was explained in detail and he is consented. He was taken the operating suite where he was sedated under the direction of anesthesia. When adequate sedation was obtained he had a synchronized shock via anterior and posterior pads at 150 W seconds. Atrial fibrillation persisted. He had to additional shocks at 150 and then 200 W seconds and was then in sinus rhythm rate approximately 60. He was taken to the recovery area, postoperative EKG is planned. He will be discharged when fully awake
[2023-07-14 08:08] VITALS: BP 98/65; PULSE 53; RESP 14; TEMP 36.3; O2SAT 94
--- NOTE | 2023-07-14 08:13 | W.ANESPOSTOP ---
Postoperative Evaluation Date, Time and Location Date Performed: 07/14/23 Time Performed: 08:13 Patient Location: Day Surgery Unit Vital Signs Most Recent Imported Vital Signs: Most Recent Vital Signs Temp Pulse Resp BP Pulse Ox 36.5 C 75 16 115/84 98 07/14/23 06:27 07/14/23 06:27 07/14/23 06:27 07/14/23 06:27 07/14/23 06:27 Pain Score Most Recent Pain Score: Most Recent Pain Score Pain Level 0 07/14/23 06:27 Assessment Mental Status: Awake (Alert & Oriented to Patient Baseline) Airway and Respiratory Function: Patent airway with normal (patient baseline) respiratory exam Cardiovascular Function: Hemodynamically Stable Hydration Status: Adequately Hydrated Nausea & Vomiting: No Nausea or Vomiting Pain: Other (Skin burn, left chest) Peripheral Nerve Block: Patient did not receive a nerve block Postoperative Comments:: Cardioversion X3, 3rd = 200J
--- NOTE | 2023-07-14 08:23 | W.PM.DSUDISC ---
Date of service: 07/14/23 Time of Service: 08:23 Discharge Plan Disposition Patient Disposition: Home Condition: Stable Discharge Details Reason For Visit: atrial fibrillation Attending Provider: Karon Bill Primary Care Provider: Adin Ortiz Home Meds and New Rx's Prescriptions: No Action tamsulosin 0.4 mg capsule 0.4 mg PO DAILY acetaminophen [Mapap (acetaminophen)] 325 mg tablet 650 mg PO Q4H PRN skullcap 100 mg capsule 100 mg PO DAILY zolpidem [Ambien CR] 6.25 mg tablet,ext release multiphase 6.25 mg PO QHS rosuvastatin 10 mg tablet 10 mg PO DAILY coenzyme Q10 [CoQ-10] 100 mg capsule 100 mg PO DAILY magnesium citrate 100 mg tablet 100 mg PO DAILY omega-3 fatty acids 1,250 mg capsule 1,250 mg PO DAILY apixaban 5 mg tablet 5 mg PO BID cetirizine 10 mg tablet 10 mg PO DAILY PRN verapamil 120 MG tablet extended release 120 mg PO DAILY AM ibuprofen 800 mg tablet 800 mg PO BID PRN (Reason: pain, moderate) Qty: 40 0RF Discharge Instructions Stand Alone Forms: DSU Cardioversion Post-Op Activity:: Activity as Tolerated Discharge Orders Discharge Orders: Discharge Order (Routine); Ordered 07/14/23 Ordered By: Karon Bill
[2023-07-14 08:44] VITALS: BP 114/73; PULSE 57; RESP 16; TEMP 36.5; O2SAT 98
== END 2023-07-14 09:04 | disposition home or self-care (01) ==
PROVIDERS: PCP Family Medicine; Visit Provider Internal Medicine Cardiovascular Disease
PROC: 5A2204Z Restoration of Cardiac Rhythm, Single (ICD-10-PCS; principal; 2023-07-14 07:30)
DX: I48.19 Other persistent atrial fibrillation (principal); R06.00 Dyspnea, unspecified
CPT/HCPCS: 92960; 93005; 93010; J2001; J2704

== ENCOUNTER → 2023-07-31 03:09 | Outpatient (CLI) | payer MEDICARE, OTHER, SELFPAY ==
--- NOTE | 2023-07-31 | DI.MRI_ITS ---
Exam(s) MR BRAIN WO EXAM: MR BRAIN WO CLINICAL HISTORY: R20.0 Anesthesai of skin,left facial/foot numbness a/w Afib TECHNIQUE: Multiplanar multisequence MRI of the brain was performed. COMPARISON: MR MRI - BRAIN WO CONTRAST from 01/30/2011 MR MRI - BRAIN WO CONTRAST from 01/25/2013 FINDINGS: VENTRICLES AND EXTRA AXIAL SPACES: Normal in size and morphology for the patient's age. MIDLINE SHIFT: None. CEREBRAL PARENCHYMA: No focus of restricted diffusion to suggest acute infarct. No space-occupying le agustin identified. There are areas of hyperintense signal seen on the FLAIR and T2 weighted images in t he white matter consistent with chronic microvascular ischemic disease. HEMORRHAGE: None. BRAINSTEM/CEREBELLUM: Normal. CALVARIUM: Normal. VISUALIZED PARANASAL SINUSES/MASTOIDS:Mild mucosal thickening in the left maxillary sinus. The remai eros visualized paranasal sinuses are clear. The mastoid air cells are well pneumatized. VENET[place] OF KAUR: Normal flow void. PITUITARY GLAND: Unremarkable. OTHER FINDINGS: None. IMPRESSION: 1. Age-appropriate cerebral atrophy and chronic microvascular ischemic disease. 2. No evidence of an acute infarct. DATA REPOSITORY:
== END ==
PROVIDERS: PCP Family Medicine; Visit Provider Family Medicine
DX: R20.0 Anesthesia of skin (principal); I67.82 Cerebral ischemia
CPT/HCPCS: 70551

== ENCOUNTER 2023-07-31 13:31 | Outpatient (CLI) | payer MEDICARE, OTHER, SELFPAY ==
--- NOTE | 2023-07-31 13:30 | RT.EKG_ITS ---
APPROVED REPORT Exam: Resting ECG Reason for Exam: followup Patient Location: O HR:49 bpm ECG Measurements Heart Rate 49 AXIS [place] 189 P 16 QRSd 90 QRS -27 QT 444 T 31 QTc 401 Conclusion Sinus bradycardia...rate< 50 Borderline left axis deviation...QRS axis (-15,-29)
== END 2023-07-31 13:32 | disposition home or self-care (01) ==
LOC: DI.CARD 13:32
PROVIDERS: PCP Family Medicine; Visit Provider Internal Medicine Cardiovascular Disease
DX: I48.91 Unspecified atrial fibrillation (principal); R94.31 Abnormal electrocardiogram [ECG] [EKG]; R00.1 Bradycardia, unspecified
CPT/HCPCS: 93010

== ENCOUNTER 2023-08-27 15:40 | Outpatient (CLI) | payer MEDICARE, OTHER, SELFPAY ==
--- NOTE | 2023-08-27 10:30 | DI.RAD_ITS ---
Exam(s) XR SHOULDER RT COMPLETE 2+V EXAM: XR SHOULDER RT COMPLETE 2+V CLINICAL HISTORY: F/U RIGHT RTSA. TECHNIQUE: 2D digital imaging was performed. Three images were obtained. Grashey, Y and axillary vi ews were obtained. COMPARISON: CR XR SHOULDER RT COMPLETE 2+V from 08/29/2022 CR XR SHOULDER RT COMPLETE 2+V from 09/11/2022 CR XR SHOULDER RT COMPLETE 2+V from 10/16/2022 FINDINGS: BONES: There are stable post operative changes of a right total reverse shoulder replacement present. No fracture or dislocation. JOINTS: The orthopedic hardware is in good position. No evidence of hardware loosening. SOFT TISSUE: Normal. IMPRESSION: Stable right total reverse shoulder replacement. DATA REPOSITORY: RADIATION DOSE DELIVERED:
== END 2023-08-27 15:41 | disposition home or self-care (01) ==
LOC: DIORS 15:41
PROVIDERS: PCP Student in an Organized Health Care Education/Training Program; Visit Provider Student in an Organized Health Care Education/Training Program
DX: M12.812 Other specific arthropathies, not elsewhere classified, left shoulder (principal); M12.811 Other specific arthropathies, not elsewhere classified, right shoulder
CPT/HCPCS: 99213; 73030

== ENCOUNTER → 2024-01-29 12:55 | Outpatient (BNVA) | payer MEDICARE, OTHER, SELFPAY | PROVIDERS: PCP Student in an Organized Health Care Education/Training Program; Referring Provider Student in an Organized Health Care Education/Training Program; Visit Provider Physical Therapy Assistant | DX: Z12.11 Encounter for screening for malignant neoplasm of colon (principal) ==

== ENCOUNTER → 2024-01-29 13:30 | Outpatient (BNVA) | payer MEDICARE, OTHER, SELFPAY | PROVIDERS: PCP Student in an Organized Health Care Education/Training Program; Visit Provider Internal Medicine Cardiovascular Disease | DX: I48.91 Unspecified atrial fibrillation (principal) | CPT/HCPCS: 99213 ==

== ENCOUNTER 2024-05-13 10:28 | Outpatient (CLI) | payer MEDICARE, OTHER, SELFPAY ==
--- NOTE | 2024-05-13 10:30 | RT.EKG_ITS ---
APPROVED REPORT Exam: Resting ECG Reason for Exam: afib Patient Location: O HR:86 bpm ECG Measurements Heart Rate 86 AXIS [place] [id number] P [id number] QRSd 94 QRS -34 QT 370 T 46 QTc 443 Conclusion Atrial fibrillation...V-rate 63-122, irreg A-activity Left axis deviation...QRS axis (-30,-90) Abnormal R-wave progression, early transition...QRS area>0 in V2
== END 2024-05-13 10:29 | disposition home or self-care (01) ==
LOC: DI.CARD 10:37
PROVIDERS: PCP Student in an Organized Health Care Education/Training Program; Referring Provider Student in an Organized Health Care Education/Training Program; Visit Provider Internal Medicine Cardiovascular Disease
DX: I48.91 Unspecified atrial fibrillation (principal)
CPT/HCPCS: 93010

== ENCOUNTER → 2024-05-13 10:28 | Outpatient (BNVA) | payer MEDICARE, OTHER, SELFPAY | PROVIDERS: PCP Student in an Organized Health Care Education/Training Program; Referring Provider Student in an Organized Health Care Education/Training Program; Visit Provider Internal Medicine Cardiovascular Disease | DX: R94.31 Abnormal electrocardiogram [ECG] [EKG] (principal); I48.91 Unspecified atrial fibrillation | CPT/HCPCS: 93005; 99214 ==

== ENCOUNTER 2024-08-20 15:00 | Outpatient (REF) | payer MEDICARE, OTHER, SELFPAY ==
[2024-08-20 21:49] LABS: Anion Gap 7.3 mmol/L (3-11); BUN 13 mg/dL (7-18); CO2 28.7 mmol/L (21.0-32.0); CREATININE 0.8 mg/dL (0.70-1.30); Calculated LDL 78 mg/dL (<100); Chloride 103 mmol/L (98-107); Cholesterol 163 mg/dL (<200); Estimated GFR 94.03 (mL/min/1.73m2); Glucose 124 mg/dL (74-106); HDL Cholesterol 52 mg/dL (>or=40); Potassium 4.2 mmol/L (3.5-5.1); Sodium 139 mmol/L (136-145); TSH (W/Ref FT4) 1.38 uIU/mL (0.36-3.74); Triglyceride 167 mg/dL (<150)
[2024-08-23 10:03] LABS: PSA, Screening 0.3 ng/mL (<=6.5)
== END 2024-08-20 15:01 | disposition home or self-care (01) ==
LOC: NCHCN 15:00
PROVIDERS: PCP Student in an Organized Health Care Education/Training Program; Visit Provider Student in an Organized Health Care Education/Training Program
DX: I10 Essential (primary) hypertension (principal); Z12.5 Encounter for screening for malignant neoplasm of prostate; E78.2 Mixed hyperlipidemia
CPT/HCPCS: 80048; 80061; 84153; 84443

== ENCOUNTER → 2024-09-28 08:10 | Outpatient (BNVA) | payer MEDICARE, OTHER, SELFPAY | PROVIDERS: PCP Student in an Organized Health Care Education/Training Program; Referring Provider Student in an Organized Health Care Education/Training Program; Visit Provider Physician Assistant | DX: M12.812 Other specific arthropathies, not elsewhere classified, left shoulder (principal); M25.512 Pain in left shoulder | CPT/HCPCS: 20610; J1010 ==

== ENCOUNTER → 2024-11-17 10:43 | Outpatient (BNVA) | payer MEDICARE, OTHER, SELFPAY | PROVIDERS: PCP Student in an Organized Health Care Education/Training Program; Referring Provider Student in an Organized Health Care Education/Training Program; Visit Provider Internal Medicine Cardiovascular Disease | DX: I48.91 Unspecified atrial fibrillation (principal) | CPT/HCPCS: 99215 ==

== ENCOUNTER 2025-01-27 08:44 | Outpatient (CLI) | payer MEDICARE, OTHER, SELFPAY ==
--- NOTE | 2025-01-27 08:30 | RT.EKG_ITS ---
APPROVED REPORT Exam: Resting ECG Reason for Exam: afib Patient Location: O HR:57 bpm ECG Measurements Heart Rate 57 AXIS [place] 183 P 9 QRSd 94 QRS -29 QT 427 T 33 QTc 416 Conclusion Sinus rhythm...normal P axis, V-rate 50- 99 Borderline left axis deviation...QRS axis (-15,-29) , early transition...QRS area>0 in V2 Baseline wander in lead(s) II,aVR,aVF,V3,V4,V5,V6
== END 2025-01-27 08:45 | disposition home or self-care (01) ==
LOC: DI.CARD 08:44
PROVIDERS: PCP Student in an Organized Health Care Education/Training Program; Visit Provider Internal Medicine Cardiovascular Disease
DX: I48.91 Unspecified atrial fibrillation (principal)
CPT/HCPCS: 93010

== ENCOUNTER → 2025-01-27 13:48 | Outpatient (BNVA) | payer MEDICARE, OTHER, SELFPAY | PROVIDERS: PCP Student in an Organized Health Care Education/Training Program; Referring Provider Student in an Organized Health Care Education/Training Program; Visit Provider Internal Medicine Cardiovascular Disease | DX: I48.91 Unspecified atrial fibrillation (principal) | CPT/HCPCS: 99213; 93005 ==

== ENCOUNTER 2025-02-17 11:54 | Outpatient (REF) | payer MEDICARE, OTHER, SELFPAY ==
[2025-02-17 16:26] LABS: Anion Gap 8.6 mmol/L (3-11); BUN 12 mg/dL (7-18); CO2 28.4 mmol/L (21.0-32.0); Calcium 9.2 mg/dL (8.5-10.1); Chloride 103 mmol/L (98-107); Glucose 94 mg/dL (74-106); Magnesium 2.2 mg/dL (1.8-2.4); Potassium 4.7 mmol/L (3.5-5.1); Sodium 140 mmol/L (136-145); Uric Acid 5.3 mg/dL (3.5-7.2)
== END 2025-02-17 11:55 | disposition home or self-care (01) ==
LOC: NCHCN 11:54
PROVIDERS: PCP Student in an Organized Health Care Education/Training Program; Visit Provider Student in an Organized Health Care Education/Training Program
DX: I48.91 Unspecified atrial fibrillation (principal); M79.674 Pain in right toe(s)
CPT/HCPCS: 80048; 83735; 84550

== ENCOUNTER → 2025-02-22 00:31 | Outpatient (CLI) | payer MEDICARE, OTHER, SELFPAY ==
--- NOTE | 2025-02-22 | DI.RAD_ITS ---
Exam(s) XR FOOT RT COMPLETE EXAM: XR FOOT RT COMPLETE CLINICAL HISTORY: PAIN RT GREAT TOE, M79.674, INCREASING FREQUENCY PAIN RELATED TO ACTIVITY. TECHNIQUE: 2D digital imaging was performed. COMPARISON: No exams were available for comparison FINDINGS: 3 views No evidence of acute fracture or diastasis of the Lisfranc joint. There are moderate-advanced degenerative changes in the great toe metatarsophalangeal joint with uniform narrowing of this joint and small osteophytes. No obvious degenerative subarticular cysts. Other MTP joints appear unremarkable. Small inferior calcaneal spur noted. There is vascular calcification noted in the foot. IMPRESSION: Moderate-advanced degenerative changes in the great toe metatarsophalangeal joint. DATA REPOSITORY: RADIATION DOSE DELIVERED:
== END ==
LOC: DI 00:31
PROVIDERS: PCP Student in an Organized Health Care Education/Training Program; Visit Provider Student in an Organized Health Care Education/Training Program
DX: M19.071 Primary osteoarthritis, right ankle and foot (principal)
CPT/HCPCS: 73630